=== PATIENT | male | born 1960 | race African-American/Black ===

== ENCOUNTER 2019-10-10 07:26 | Inpatient (IN) | payer BC, MEDICARE, OTHER ==
[~2019-10-10] VITALS: Ht 175.3 cm; Wt 67.1 kg
[2019-10-10] MEDS ORDERED: MORPHINE SULFATE 4 MG/ML CPJ (NOT FOR IM USE) IV STA (08:06)
[2019-10-10] MEDS ORDERED: ONDANSETRON HCL 4MG/2ML INJ IV ONE ×2 (08:15→11:45)
[2019-10-10] MEDS ORDERED: ONDANSETRON HCL 4MG/2ML INJ ONE (08:22)
[2019-10-10 08:25] LABS: HEMATOCRIT. 38.7 % (42.0-52.0); HEMOGLOBIN. 13.4 g/dL (14.0-18.0); MEAN CORPUSCULAR HEMOGLOBIN 29.5 pg (28.0-32.0); MEAN CORPUSCULAR VOLUME 85.1 fL (80.0-94.0); MEAN PLATELET VOLUME 7.8 fl (7.4-10.4); PLATELET 245 x1000/uL (130-400); RED BLOOD CELL COUNT 4.55 mill/uL (4.7-6.1); RED CELL DISTRIBUTION WIDTH 16.1 % (11.6-14.6)
[2019-10-10 08:32] LABS: CHLORIDE 95 mEq/L (98-107)
[2019-10-10] MEDS ORDERED: MORPHINE SULFATE 4 MG/ML CPJ (NOT FOR IM USE) IV ONE ×2 (08:45→10:30)
[2019-10-10 10:41] LABS: PLATELET ESTIMATE NORMAL
[2019-10-10] MEDS ORDERED: ALBUTEROL (0.083%) 2.5MG/3ML NEB HHN STA (11:10)
[2019-10-10] MEDS ORDERED: DOCUSATE SODIUM 100MG CAPSULE PO PRN (12:00)
[2019-10-10] MEDS ORDERED: LORAZEPAM 2MG/ML CPJ IV PRN (12:00)
[2019-10-10] MEDS ORDERED: HYDROCODONE/ACETAMINOPHEN 5/325MG TABLET PO PRN (12:00)
[2019-10-10] MEDS ORDERED: GUAIFENESIN 200MG/10ML SUGAR FREE UDC PO PRN (12:00)
[2019-10-10] MEDS ORDERED: NA PHOS,M-B/NA PHOS,DI-BA ENEMA 118ML PR PRN (12:00)
[2019-10-10] MEDS ORDERED: MAGNESIUM/ALUMINUM HYDROXIDE/SIMETHICONE 30ML UDC PO PRN (12:00)
[2019-10-10] MEDS ORDERED: CLONIDINE 0.1MG TABLET PO PRN (12:00)
[2019-10-10] MEDS ORDERED: IPRATROPIUM/ALBUTEROL 0.5-3(2.5)MG/3ML NEB NEB PRN (12:00)
[2019-10-10] MEDS ORDERED: ACETAMINOPHEN 325MG TABLET PO PRN (12:00)
[2019-10-10] MEDS ORDERED: DIPHENHYDRAMINE 50MG/ML VIAL IV PRN (12:00)
[2019-10-11] VITALS (8 sets, daily range): BP systolic 106–151; BP diastolic 68–89
[2019-10-11] MEDS: ONDANSETRON HCL 4MG/2ML INJ IV PRN ×2 (00:57→18:49)
[2019-10-11] MEDS: MORPHINE SULFATE 2 MG/ML CPJ (NOT FOR IM USE) IV PRN (00:57)
[2019-10-11] MEDS ORDERED: CALC667T2 PO (02:19)
[2019-10-11] MEDS ORDERED: AMLO10TA80 PO (02:19)
[2019-10-11] MEDS ORDERED: ATOR10TA69 PO (02:19)
[2019-10-11] MEDS ORDERED: ALLO100T PO (02:19)
[2019-10-11 06:59] LABS: CHLORIDE 98 mEq/L (98-107)
[2019-10-11 07:08] LABS: T4 FREE 1.24 ng/dL (0.76-1.46)
[2019-10-11 07:11] LABS: LDL CHOLESTEROL 61 mg/dL (5-100)
[2019-10-11 07:12] LABS: HDL CHOLESTEROL 104 mg/dL (40-59)
[2019-10-11 07:41] LABS: BASOPHILS % 0.2 % (0.0-2.0); EOSINOPHILS % 0.1 % (0.0-5.0); HEMATOCRIT. 37.3 % (42.0-52.0); HEMOGLOBIN. 13.1 g/dL (14.0-18.0); LYMPHOCYTES % 12.1 % (20.0-50.0); MEAN CORPUSCULAR HEMOGLOBIN 29.9 pg (28.0-32.0); MEAN CORPUSCULAR VOLUME 85.3 fL (80.0-94.0); MEAN PLATELET VOLUME 8.2 fl (7.4-10.4); NEUTROPHILS % 79.6 % (40.0-76.0); PLATELET 245 x1000/uL (130-400); RED BLOOD CELL COUNT 4.38 mill/uL (4.7-6.1); RED CELL DISTRIBUTION WIDTH 16.6 % (11.6-14.6)
[2019-10-11] MEDS ORDERED: ENOXAPARIN 40MG/0.4ML SYR SUBCUT SCH (09:00)
[2019-10-11] MEDS ORDERED: FAMOTIDINE 20MG TABLET PO NR (10:15)
[2019-10-11] MEDS: OMEPRAZOLE 20MG CAPSULE EXTENDED RELEASE PO SCH (10:50)
[2019-10-11] MEDS: ALLOPURINOL 100 MG TABLET PO SCH (10:51)
[2019-10-11] MEDS: AMLODIPINE 5MG TABLET PO SCH (10:51)
[2019-10-11] MEDS: DOCUSATE SODIUM 100MG CAPSULE PO SCH (17:52)
[2019-10-11] MEDS: ATORVASTATIN CALCIUM 10MG TABLET PO SCH (21:11)
[2019-10-12] VITALS (7 sets, daily range): BP systolic 112–157; BP diastolic 64–98
[2019-10-12] MEDS: OMEPRAZOLE 20MG CAPSULE EXTENDED RELEASE PO SCH (06:11)
[2019-10-12 06:34] LABS: BASOPHILS % 0.3 % (0.0-2.0); EOSINOPHILS % 1.6 % (0.0-5.0); HEMATOCRIT. 38.8 % (42.0-52.0); HEMOGLOBIN. 13.4 g/dL (14.0-18.0); LYMPHOCYTES % 18.9 % (20.0-50.0); MEAN CORPUSCULAR HEMOGLOBIN 29.4 pg (28.0-32.0); MEAN CORPUSCULAR VOLUME 85.4 fL (80.0-94.0); MONOCYTES % 12.5 % (2.0-8.0); NEUTROPHILS % 66.7 % (40.0-76.0); PLATELET 237 x1000/uL (130-400); RED BLOOD CELL COUNT 4.55 mill/uL (4.7-6.1); RED CELL DISTRIBUTION WIDTH 16.4 % (11.6-14.6)
[2019-10-12 06:57] LABS: CHLORIDE 100 mEq/L (98-107)
[2019-10-12 07:09] LABS: PHOSPHORUS 4.6 mg/dL (2.5-4.9)
[2019-10-12] MEDS: FOLIC ACID/VITAMIN B COMP W-C TABLET PO SCH (09:31)
[2019-10-12] MEDS: ENOXAPARIN 30MG/0.3ML SYR SUBCUT SCH (09:31)
[2019-10-12] MEDS: AMLODIPINE 5MG TABLET PO SCH (09:32)
[2019-10-12] MEDS: DOCUSATE SODIUM 100MG CAPSULE PO SCH ×2 (09:32→16:50)
[2019-10-12] MEDS: ALLOPURINOL 100 MG TABLET PO SCH (09:32)
[2019-10-12] MEDS: CALCIUM ACETATE 667 MG TABLET PO SCH ×2 (13:30→18:20)
[2019-10-12] MEDS: MORPHINE SULFATE 2 MG/ML CPJ (NOT FOR IM USE) IV PRN (13:45)
[2019-10-12] MEDS: ATORVASTATIN CALCIUM 10MG TABLET PO SCH (20:48)
[2019-10-13] VITALS: BP 133/85
[2019-10-13 04:00] VITALS: BP 128/75
[2019-10-13 06:29] LABS: BASOPHILS % 0.9 % (0.0-2.0); EOSINOPHILS % 2.6 % (0.0-5.0); HEMATOCRIT. 39.2 % (42.0-52.0); HEMOGLOBIN. 13.5 g/dL (14.0-18.0); LYMPHOCYTES % 26.9 % (20.0-50.0); MEAN CORPUSCULAR HEMOGLOBIN 29.5 pg (28.0-32.0); MEAN CORPUSCULAR VOLUME 85.6 fL (80.0-94.0); MEAN PLATELET VOLUME 8.2 fl (7.4-10.4); MONOCYTES % 13.6 % (2.0-8.0); PLATELET 238 x1000/uL (130-400); RED BLOOD CELL COUNT 4.58 mill/uL (4.7-6.1); RED CELL DISTRIBUTION WIDTH 16.1 % (11.6-14.6)
[2019-10-13] MEDS: OMEPRAZOLE 20MG CAPSULE EXTENDED RELEASE PO SCH (06:38)
[2019-10-13 08:44] VITALS: BP 134/84
[2019-10-13] MEDS: AMLODIPINE 5MG TABLET PO SCH (09:00)
[2019-10-13] MEDS: DOCUSATE SODIUM 100MG CAPSULE PO SCH (09:16)
[2019-10-13] MEDS: FOLIC ACID/VITAMIN B COMP W-C TABLET PO SCH (09:18)
[2019-10-13] MEDS: CALCIUM ACETATE 667 MG TABLET PO SCH ×2 (09:18→13:23)
[2019-10-13] MEDS: ENOXAPARIN 30MG/0.3ML SYR SUBCUT SCH (09:25)
[2019-10-13 12:00] VITALS: BP 139/93
[2019-10-13 14:29] VITALS: BP 139/93
[2019-10-13 15:31] VITALS: BP 148/94
== END 2019-10-13 17:15 | disposition home or self-care (01) | DRG 391 ==
LOC: ER 07:26 → 6WST 11:42 → ENRESERV 23:44
PROVIDERS: ADMIT Internal Medicine; ATTEND Internal Medicine
PROC: 5A1D70Z Performance of Urinary Filtration, Intermittent, Less than 6 Hours Per Day (ICD-10-PCS; 2019-10-11)
PROC: 5A1D70Z Performance of Urinary Filtration, Intermittent, Less than 6 Hours Per Day (ICD-10-PCS; principal; 2019-10-13)
DX: R10.9 Unspecified abdominal pain (principal); N18.6 End stage renal disease; E46 Unspecified protein-calorie malnutrition; I12.0 Hypertensive chronic kidney disease with stage 5 chronic kidney disease or end stage renal disease; N25.81 Secondary hyperparathyroidism of renal origin; Q61.3 Polycystic kidney, unspecified; Q44.6 Cystic disease of liver; E87.1 Hypo-osmolality and hyponatremia; E86.0 Dehydration; E87.6 Hypokalemia; E78.5 Hyperlipidemia, unspecified; N40.0 Benign prostatic hyperplasia without lower urinary tract symptoms; E21.3 Hyperparathyroidism, unspecified; K21.9 Gastro-esophageal reflux disease without esophagitis; M10.9 Gout, unspecified; Z99.2 Dependence on renal dialysis; Z79.899 Other long term (current) drug therapy; Z68.21 Body mass index [BMI] 21.0-21.9, adult
CPT/HCPCS: 36415; 71045; 74176; 80048; 80053; 80061; 83880; 84100; 84439; 84443; 84484; 84550; 85025; 86850; 86900; 93005; 94640; 99285; J1650; J2060; J2270; J2405

== ENCOUNTER 2020-01-15 07:52 | Inpatient (IN) | payer BC, MEDICARE, OTHER ==
[~2020-01-15] VITALS: Ht 175.3 cm; Wt 72.6 kg
[~2020-01-15 07:52] MED LIST: ALLO100T PO; AMLO10TA80 PO; ATOR10TA69 PO; CALC667T2 PO
[2020-01-15] MEDS ORDERED: MORPHINE SULFATE 4 MG/ML CPJ (NOT FOR IM USE) IV STA (08:04)
[2020-01-15] MEDS ORDERED: ONDANSETRON HCL 4MG/2ML INJ IV STA (08:04)
[2020-01-15 08:24] LABS: BASOPHILS % 0.3 % (0.0-2.0); EOSINOPHILS % 0.4 % (0.0-5.0); HEMATOCRIT. 38.6 % (42.0-52.0); HEMOGLOBIN. 13.3 g/dL (14.0-18.0); LYMPHOCYTES % 9.9 % (20.0-50.0); MEAN CORPUSCULAR HEMOGLOBIN 29.3 pg (28.0-32.0); MEAN CORPUSCULAR VOLUME 85.3 fL (80.0-94.0); MEAN PLATELET VOLUME 7.9 fl (7.4-10.4); MONOCYTES % 7.5 % (2.0-8.0); NEUTROPHILS % 81.9 % (40.0-76.0); PLATELET 209 x1000/uL (130-400); RED BLOOD CELL COUNT 4.52 mill/uL (4.7-6.1); RED CELL DISTRIBUTION WIDTH 15.8 % (11.6-14.6)
[2020-01-15 08:29] LABS: CHLORIDE 99 mEq/L (98-107)
[2020-01-15 08:30] LABS: INR 1.2
[2020-01-15] MEDS ORDERED: MORPHINE SULFATE 4 MG/ML CPJ (NOT FOR IM USE) IV ONE (09:15)
[2020-01-15] MEDS ORDERED: LORAZEPAM 1MG TABLET PO ONE (10:00)
[2020-01-15 12:15] VITALS: BP 132/83
[2020-01-15 12:20] VITALS: BP 132/83
[2020-01-15] MEDS ORDERED: MAGNESIUM/ALUMINUM HYDROXIDE/SIMETHICONE 30ML UDC PO PRN (14:30)
[2020-01-15] MEDS ORDERED: ACETAMINOPHEN 325MG TABLET PO PRN (14:30)
[2020-01-15] MEDS ORDERED: ENOXAPARIN 40MG/0.4ML SYR SUBCUT SCH (14:30)
[2020-01-15] MEDS ORDERED: HYDROMORPHONE HCL/PF 2MG/ML CPJ IV PRN (14:30)
[2020-01-15] MEDS ORDERED: CLONIDINE 0.1MG TABLET PO PRN (14:30)
[2020-01-15] MEDS ORDERED: GUAIFENESIN 200MG/10ML SUGAR FREE UDC PO PRN (14:30)
[2020-01-15] MEDS ORDERED: HYDROCODONE/ACETAMINOPHEN 5/325MG TABLET PO PRN (14:30)
[2020-01-15] MEDS ORDERED: DOCUSATE SODIUM 100MG CAPSULE PO PRN (14:30)
[2020-01-15] MEDS ORDERED: BISACODYL 5MG TABLET PO SCH (14:45)
[2020-01-15 16:00] VITALS: BP 141/88
[2020-01-15] MEDS: ENOXAPARIN 30MG/0.3ML SYR SUBCUT SCH (16:46)
[2020-01-15] MEDS: METOCLOPRAMIDE HCL 5MG TABLET PO SCH ×2 (18:23→20:43)
[2020-01-15] MEDS: DOCUSATE SODIUM 100MG CAPSULE PO SCH (18:23)
[2020-01-15] MEDS ORDERED: PNEUMOCOCCAL 23-VAL P-SAC VAC 0.5 ML IM ONE (19:45)
[2020-01-15 20:00] VITALS: BP 131/86
[2020-01-15] MEDS: ATORVASTATIN CALCIUM 10MG TABLET PO SCH (20:43)
[2020-01-15] MEDS: ONDANSETRON HCL 4MG/2ML INJ IV PRN (20:54)
[2020-01-16] VITALS: BP 122/81
[2020-01-16] MEDS: ONDANSETRON HCL 4MG/2ML INJ IV PRN (03:52)
[2020-01-16 04:00] VITALS: BP 141/83
[2020-01-16 06:49] LABS: BASOPHILS % 0.2 % (0.0-2.0); EOSINOPHILS % 0.4 % (0.0-5.0); HEMATOCRIT. 34.7 % (42.0-52.0); LYMPHOCYTES % 18.7 % (20.0-50.0); MEAN CORPUSCULAR HEMOGLOBIN 29.5 pg (28.0-32.0); MEAN CORPUSCULAR VOLUME 85.2 fL (80.0-94.0); MEAN PLATELET VOLUME 8.4 fl (7.4-10.4); MONOCYTES % 12.6 % (2.0-8.0); NEUTROPHILS % 68.1 % (40.0-76.0); PLATELET 179 x1000/uL (130-400); RED BLOOD CELL COUNT 4.07 mill/uL (4.7-6.1); RED CELL DISTRIBUTION WIDTH 15.9 % (11.6-14.6)
[2020-01-16] MEDS: METOCLOPRAMIDE HCL 5MG TABLET PO SCH ×4 (06:54→21:03)
[2020-01-16] MEDS: OMEPRAZOLE 20MG CAPSULE EXTENDED RELEASE PO SCH (06:54)
[2020-01-16 06:55] LABS: CHLORIDE 100 mEq/L (98-107)
[2020-01-16 07:02] LABS: PHOSPHORUS 3.8 mg/dL (2.5-4.9)
[2020-01-16 08:00] VITALS: BP 145/82
[2020-01-16] MEDS ORDERED: AMLODIPINE 10MG TABLET PO SCH (09:00)
[2020-01-16] MEDS ORDERED: AMLODIPINE 5MG TABLET PO SCH (09:00)
[2020-01-16] MEDS: DOCUSATE SODIUM 100MG CAPSULE PO SCH ×2 (09:21→16:23)
[2020-01-16] MEDS: AMLODIPINE 10MG TABLET PO SCH (09:22)
[2020-01-16] MEDS ORDERED: MAGNESIUM CITRATE 300ML SOLUTION PO NR (10:00)
[2020-01-16 12:00] VITALS: BP 124/71
[2020-01-16 16:00] VITALS: BP 133/77
[2020-01-16] MEDS: ENOXAPARIN 30MG/0.3ML SYR SUBCUT SCH (16:23)
[2020-01-16 20:00] VITALS: BP 121/75
[2020-01-16] MEDS: ATORVASTATIN CALCIUM 10MG TABLET PO SCH (21:03)
[2020-01-17] VITALS: BP 132/78
[2020-01-17 03:50] VITALS: BP 140/83
[2020-01-17] MEDS: OMEPRAZOLE 20MG CAPSULE EXTENDED RELEASE PO SCH (06:29)
[2020-01-17] MEDS: METOCLOPRAMIDE HCL 5MG TABLET PO SCH ×2 (06:29→12:20)
[2020-01-17 06:50] LABS: BASOPHILS % 0.3 % (0.0-2.0); EOSINOPHILS % 1.9 % (0.0-5.0); HEMATOCRIT. 35.9 % (42.0-52.0); HEMOGLOBIN. 12.4 g/dL (14.0-18.0); LYMPHOCYTES % 20.5 % (20.0-50.0); MEAN CORPUSCULAR HEMOGLOBIN 29.5 pg (28.0-32.0); MEAN CORPUSCULAR VOLUME 85.7 fL (80.0-94.0); MEAN PLATELET VOLUME 8.6 fl (7.4-10.4); MONOCYTES % 10.4 % (2.0-8.0); NEUTROPHILS % 66.9 % (40.0-76.0); PLATELET 182 x1000/uL (130-400); RED BLOOD CELL COUNT 4.19 mill/uL (4.7-6.1); RED CELL DISTRIBUTION WIDTH 15.7 % (11.6-14.6)
[2020-01-17 07:25] LABS: CHLORIDE 99 mEq/L (98-107)
[2020-01-17 07:33] LABS: PHOSPHORUS 3.6 mg/dL (2.5-4.9)
[2020-01-17 08:00] VITALS: BP 140/81
[2020-01-17] MEDS: DOCUSATE SODIUM 100MG CAPSULE PO SCH (08:56)
[2020-01-17] MEDS: AMLODIPINE 10MG TABLET PO SCH (08:58)
[2020-01-17 12:00] VITALS: BP 133/86
[2020-01-17] MEDS: ENOXAPARIN 30MG/0.3ML SYR SUBCUT SCH (14:36)
[2020-01-17 14:40] VITALS: BP 133/86
== END 2020-01-17 15:27 | disposition home or self-care (01) | DRG 391 ==
LOC: ER 07:59 → MICUSO 10:27 → 6WST 12:02
PROVIDERS: ADMIT Hospitalist; ATTEND Hospitalist
PROC: 5A1D70Z Performance of Urinary Filtration, Intermittent, Less than 6 Hours Per Day (ICD-10-PCS; principal; 2020-01-17)
DX: R11.2 Nausea with vomiting, unspecified (principal); N18.6 End stage renal disease; Q61.3 Polycystic kidney, unspecified; I12.0 Hypertensive chronic kidney disease with stage 5 chronic kidney disease or end stage renal disease; N25.81 Secondary hyperparathyroidism of renal origin; Q44.6 Cystic disease of liver; K56.41 Fecal impaction; E87.6 Hypokalemia; E78.5 Hyperlipidemia, unspecified; M10.9 Gout, unspecified; K21.9 Gastro-esophageal reflux disease without esophagitis; Z99.2 Dependence on renal dialysis; Z82.49 Family history of ischemic heart disease and other diseases of the circulatory system; Z79.899 Other long term (current) drug therapy
CPT/HCPCS: 36415; 71045; 74176; 80053; 84100; 84550; 85025; 93970; 96374; 99285; J1170; J1650; J2270; J2405; J8597

== ENCOUNTER 2020-05-25 18:05 | Inpatient (IN) | payer BC, MEDICARE, OTHER ==
[~2020-05-25] VITALS: Ht 172.7 cm; Wt 73.9 kg
[2020-05-25 18:34] LABS: BASOPHILS % 0.5 % (0.0-2.0); EOSINOPHILS % 2.7 % (0.0-5.0); HEMATOCRIT. 33.8 % (42.0-52.0); HEMOGLOBIN. 11.5 g/dL (14.0-18.0); LYMPHOCYTES % 9.5 % (20.0-50.0); MEAN CORPUSCULAR HEMOGLOBIN 29.4 pg (28.0-32.0); MEAN CORPUSCULAR VOLUME 86.1 fL (80.0-94.0); MEAN PLATELET VOLUME 7.7 fl (7.4-10.4); NEUTROPHILS % 79.3 % (40.0-76.0); PLATELET 228 x1000/uL (130-400); RED BLOOD CELL COUNT 3.92 mill/uL (4.7-6.1); RED CELL DISTRIBUTION WIDTH 16.1 % (11.6-14.6)
[2020-05-25 18:42] LABS: INR 1.2; PROTHROMBIN TIME 12.9 sec (9.6-11.0)
[2020-05-25 18:43] LABS: CHLORIDE 101 mEq/L (98-107)
[2020-05-25] MEDS ORDERED: DEXAMETHASONE 10 MG/ML VIAL IV ONE (18:45)
[2020-05-25] MEDS ORDERED: LEVETIRACETAM 500MG PREMIX 100 ML IV ONE (18:45)
[2020-05-25] MEDS ORDERED: NICARDIPINE 50 MG in SODIUM CHLORIDE 0.9% 230 ML IV ONE (18:45)
[2020-05-25 18:46] LABS: ETHANOL BLOOD < 10 mg/dL
[2020-05-25 18:50] LABS: LDL CHOLESTEROL 58 mg/dL (5-100)
[2020-05-25] MEDS ORDERED: NICARDIPINE 40MG/200ML PREMIX 200 ML IV NR (18:56)
[2020-05-25] MEDS ORDERED: KCL 10MEQ/50ML PREMIX 50 ML IV ONE (19:15)
[2020-05-25 19:37] LABS: CLARITY URINE CLEAR (CLEAR); COLOR URINE YELLOW (YELLOW); KETONES URINE NEGATIVE (NEGATIVE); LEUKOCYTE ESTERASE URINE NEGATIVE (NEGATIVE); NITRITE URINE NEGATIVE (NEGATIVE); OCCULT BLOOD URINE TRACE (NEGATIVE); PH URINE >=9.0 (4.5-8.0); PROTEIN URINE 3+ (NEGATIVE); SPECIFIC GRAVITY URINE 1.011 (1.005-1.030); UROBILINOGEN URINE 0.2 E.U./dL (0.2-1.0)
[2020-05-25 19:46] LABS: *AMPHETAMINES SCREEN URINE NEGATIVE (NEGATIVE); *BARBITURATES SCREEN URINE NEGATIVE (NEGATIVE); *BENZODIAZEPINES SCREEN URINE NEGATIVE (NEGATIVE); *COCAINE SCREEN URINE NEGATIVE (NEGATIVE)
[2020-05-25 19:47] LABS: METHADONE URINE SCREEN NEGATIVE (NEGATIVE); OPIATES URINE SCREEN NEGATIVE (NEGATIVE); PHENCYCLIDINE URINE SCREEN NEGATIVE (NEGATIVE)
[2020-05-25 19:48] LABS: CANNABINOID URINE SCREEN PRESUMTIVE POSITIVE (NEGATIVE)
[2020-05-25] MEDS: DEXT 5%/0.9% NACL 1,000 ML IV SCH (21:52)
[2020-05-25 22:39] VITALS: BP 147/83
[2020-05-25 22:45] VITALS: BP 155/101
[2020-05-25 23:00] VITALS: BP_SYST 141; BP_SYST 147; BP_DIAS 83; BP_DIAS 87
[2020-05-25 23:15] VITALS: BP 139/76
[2020-05-25 23:30] VITALS: BP 139/90
[2020-05-25 23:45] VITALS: BP 137/105
[2020-05-26] VITALS (94 sets, daily range): BP systolic 108–154; BP diastolic 39–97
[2020-05-26] MEDS ORDERED: NICARDIPINE 100 MG in SODIUM CHLORIDE 0.9% 60 ML IV PRN ×2
[2020-05-26] MEDS: DEXAMETHASONE 4MG/ML 1ML VIAL IV SCH ×4 (00:56→17:43)
[2020-05-26] MEDS: NICARDIPINE 100 MG in SODIUM CHLORIDE 0.9% 60 ML IV PRN ×3 (00:57→19:56)
[2020-05-26] MEDS: MORPHINE SULFATE 2 MG/ML CPJ (NOT FOR IM USE) IV PRN ×4 (02:44→22:15)
[2020-05-26] MEDS ORDERED: MORPHINE SULFATE 2 MG/ML CPJ (NOT FOR IM USE) IV SCH (07:00)
[2020-05-26 08:35] LABS: HEMATOCRIT. 33.8 % (42.0-52.0); HEMOGLOBIN. 11.5 g/dL (14.0-18.0); MEAN CORPUSCULAR HEMOGLOBIN 29.5 pg (28.0-32.0); MEAN CORPUSCULAR VOLUME 87.2 fL (80.0-94.0); MEAN PLATELET VOLUME 7.9 fl (7.4-10.4); PLATELET 269 x1000/uL (130-400); RED BLOOD CELL COUNT 3.88 mill/uL (4.7-6.1); RED CELL DISTRIBUTION WIDTH 16.1 % (11.6-14.6)
[2020-05-26] MEDS ORDERED: LEVETIRACETAM 500MG PREMIX 100 ML IV SCH (09:00)
[2020-05-26] MEDS: FAMOTIDINE 20MG/2ML VIAL IV SCH (09:45)
[2020-05-26 09:59] LABS: PLATELET ESTIMATE NORMAL
[2020-05-26] MEDS ORDERED: KCL 20MEQ/100ML PREMIX 100 ML IV SCH (11:00)
[2020-05-26] MEDS: LEVETIRACETAM 500MG PREMIX 100 ML IV SCH ×2 (11:36→21:02)
[2020-05-26] MEDS: DEXT 5%/0.9% NACL 1,000 ML IV SCH ×2 (11:38→17:43)
[2020-05-26] MEDS ORDERED: LORAZEPAM 2MG/ML CPJ IV SCH (12:45)
[2020-05-27] VITALS (95 sets, daily range): BP systolic 105–147; BP diastolic 57–99
[2020-05-27] MEDS: DEXAMETHASONE 4MG/ML 1ML VIAL IV SCH ×4 (00:27→17:24)
[2020-05-27 05:54] LABS: HEMATOCRIT. 31.5 % (42.0-52.0); HEMOGLOBIN. 10.8 g/dL (14.0-18.0); MEAN CORPUSCULAR HEMOGLOBIN 29.3 pg (28.0-32.0); MEAN CORPUSCULAR VOLUME 85.6 fL (80.0-94.0); MEAN PLATELET VOLUME 8.1 fl (7.4-10.4); PLATELET 243 x1000/uL (130-400); RED BLOOD CELL COUNT 3.68 mill/uL (4.7-6.1); RED CELL DISTRIBUTION WIDTH 16.1 % (11.6-14.6)
[2020-05-27 05:59] LABS: PHOSPHORUS 5.1 mg/dL (2.5-4.9)
[2020-05-27] MEDS: NICARDIPINE 100 MG in SODIUM CHLORIDE 0.9% 60 ML IV PRN (06:43)
[2020-05-27] MEDS: FAMOTIDINE 20MG/2ML VIAL IV SCH (08:38)
[2020-05-27] MEDS: LEVETIRACETAM 500MG PREMIX 100 ML IV SCH ×2 (08:38→20:05)
[2020-05-27 08:59] LABS: PLATELET ESTIMATE NORMAL
[2020-05-27] MEDS ORDERED: LORAZEPAM 2MG/ML CPJ IV NR (17:00)
[2020-05-27] MEDS: DEXT 5%/0.9% NACL 1,000 ML IV SCH ×2 (17:24→17:25)
[2020-05-28] VITALS (85 sets, daily range): BP systolic 104–189; BP diastolic 49–120
[2020-05-28] MEDS: DEXT 5%/0.9% NACL 1,000 ML IV SCH ×2 (00:27→20:18)
[2020-05-28] MEDS: NICARDIPINE 100 MG in SODIUM CHLORIDE 0.9% 60 ML IV PRN (06:56)
[2020-05-28] MEDS: MORPHINE SULFATE 2 MG/ML CPJ (NOT FOR IM USE) IV PRN ×5 (07:24→23:59)
[2020-05-28] MEDS ORDERED: LORAZEPAM 2MG/ML CPJ IV NR (07:30)
[2020-05-28] MEDS: LORAZEPAM 2MG/ML CPJ IV PRN ×3 (08:11→20:19)
[2020-05-28] MEDS: FAMOTIDINE 20MG/2ML VIAL IV SCH (08:51)
[2020-05-28] MEDS: LEVETIRACETAM 500MG PREMIX 100 ML IV SCH ×2 (08:51→20:02)
[2020-05-28 12:21] LABS: HEMATOCRIT. 32.3 % (42.0-52.0); HEMOGLOBIN. 10.9 g/dL (14.0-18.0); MEAN PLATELET VOLUME 8.2 fl (7.4-10.4); PLATELET 271 x1000/uL (130-400); RED BLOOD CELL COUNT 3.76 mill/uL (4.7-6.1); RED CELL DISTRIBUTION WIDTH 16.3 % (11.6-14.6)
[2020-05-28 12:24] LABS: PHOSPHORUS 5.3 mg/dL (2.5-4.9)
[2020-05-28 17:46] LABS: PLATELET ESTIMATE NORMAL
[2020-05-28] MEDS: NITROPRUSSIDE 100 MG in DEXT 5% WATER 246 ML IV PRN (20:19)
[2020-05-29] VITALS (87 sets, daily range): BP systolic 96–194; BP diastolic 56–106
[2020-05-29] MEDS: LORAZEPAM 2MG/ML CPJ IV PRN ×4 (02:51→21:55)
[2020-05-29] MEDS: MORPHINE SULFATE 2 MG/ML CPJ (NOT FOR IM USE) IV PRN ×3 (05:01→22:56)
[2020-05-29 05:55] LABS: PHOSPHORUS 5.5 mg/dL (2.5-4.9)
[2020-05-29 05:57] LABS: HEMATOCRIT. 30.4 % (42.0-52.0); HEMOGLOBIN. 10.4 g/dL (14.0-18.0); MEAN CORPUSCULAR HEMOGLOBIN 29.2 pg (28.0-32.0); MEAN CORPUSCULAR VOLUME 85.7 fL (80.0-94.0); MEAN PLATELET VOLUME 8.4 fl (7.4-10.4); PLATELET 211 x1000/uL (130-400); RED BLOOD CELL COUNT 3.55 mill/uL (4.7-6.1); RED CELL DISTRIBUTION WIDTH 16.1 % (11.6-14.6)
[2020-05-29 07:50] LABS: PLATELET ESTIMATE NORMAL
[2020-05-29] MEDS: NITROPRUSSIDE 100 MG in DEXT 5% WATER 246 ML IV PRN ×2 (08:03→20:08)
[2020-05-29] MEDS: FAMOTIDINE 20MG/2ML VIAL IV SCH (09:22)
[2020-05-29] MEDS: LEVETIRACETAM 500MG PREMIX 100 ML IV SCH ×2 (09:22→20:21)
[2020-05-29] MEDS: HALOPERIDOL LACTATE 5MG/ML VIAL IM PRN (20:21)
[2020-05-30] VITALS (74 sets, daily range): BP systolic 108–193; BP diastolic 57–111
[2020-05-30] MEDS: NITROPRUSSIDE 100 MG in DEXT 5% WATER 246 ML IV PRN ×4 (00:14→23:36)
[2020-05-30] MEDS: MORPHINE SULFATE 2 MG/ML CPJ (NOT FOR IM USE) IV PRN (01:56)
[2020-05-30 05:44] LABS: BASOPHILS % 0.1 % (0.0-2.0); HEMOGLOBIN. 10.6 g/dL (14.0-18.0); LYMPHOCYTES % 9.7 % (20.0-50.0); MEAN CORPUSCULAR HEMOGLOBIN 29.4 pg (28.0-32.0); MEAN PLATELET VOLUME 8.1 fl (7.4-10.4); MONOCYTES % 9.3 % (2.0-8.0); NEUTROPHILS % 80.9 % (40.0-76.0); PLATELET 175 x1000/uL (130-400); RED CELL DISTRIBUTION WIDTH 16.1 % (11.6-14.6)
[2020-05-30] MEDS: MORPHINE SULFATE 4 MG/ML CPJ (NOT FOR IM USE) IV PRN ×4 (06:28→23:44)
[2020-05-30] MEDS: LEVETIRACETAM 500MG PREMIX 100 ML IV SCH ×2 (09:20→20:00)
[2020-05-30] MEDS: FAMOTIDINE 20MG/2ML VIAL IV SCH (09:21)
[2020-05-30] MEDS: CLONIDINE HCL 0.2MG/24HR PATCH TD SCH (12:09)
[2020-05-30] MEDS: LORAZEPAM 2MG/ML CPJ IV PRN ×2 (13:54→19:46)
[2020-05-30 16:47] LABS: BG BASE EXCESS -2.2 mmol/L (-2.0-2.0); BG CARBOXYHEMOGLOBIN 0.3 % (0.5-1.5); BG DEOXYHEMOGLOBIN 4.3 % (0.0-5.0); BG FRACTION INSPIRED OXYGEN 21; BG HCO3 ACT 22.4 mmol/L (22.0-26.0); BG METHEMOGLOBIN 0.3 % (0.0-1.5); BG OXYGEN SATURATION 95.7 % (92.0-98.5); BG OXYHEMOGLOBIN 95.1 % (94.0-97.0); BG PCO2 37.8 mmHg (35.0-45.0); BG PH 7.391 (7.350-7.450); BG PO2 89.8 mmHg (75.0-100.0); BG SAMPLE SITE RIGHT RADIAL; BG TOTAL HEMOGLOBIN 11.1 g/dL (12.0-18.0); BG VENT MODE ROOM AIR
[2020-05-30] MEDS: DEXT 5%/0.9% NACL 1,000 ML IV SCH (17:57)
[2020-05-30] MEDS: HYDRALAZINE HCL 50MG TABLET NG SCH ×3 (18:01→23:29)
[2020-05-30] MEDS: METOPROLOL TARTRATE 25MG TABLET NG SCH (20:01)
[2020-05-31] VITALS (94 sets, daily range): BP systolic 92–180; BP diastolic 40–99
[2020-05-31] MEDS: MORPHINE SULFATE 4 MG/ML CPJ (NOT FOR IM USE) IV PRN ×2 (02:18→16:47)
[2020-05-31] MEDS: HYDRALAZINE HCL 50MG TABLET NG SCH ×4 (05:01→23:05)
[2020-05-31 05:23] LABS: HEMATOCRIT. 29.9 % (42.0-52.0); HEMOGLOBIN. 10.2 g/dL (14.0-18.0); MEAN CORPUSCULAR HEMOGLOBIN 29.3 pg (28.0-32.0); MEAN CORPUSCULAR VOLUME 85.6 fL (80.0-94.0); MEAN PLATELET VOLUME 8.3 fl (7.4-10.4); PLATELET 177 x1000/uL (130-400); RED BLOOD CELL COUNT 3.49 mill/uL (4.7-6.1); RED CELL DISTRIBUTION WIDTH 15.9 % (11.6-14.6)
[2020-05-31 05:39] LABS: PHOSPHORUS 4.3 mg/dL (2.5-4.9)
[2020-05-31] MEDS ORDERED: LIDOCAINE HCL 1% 20ML VIAL (Pyxis) INJ ONE (08:03)
[2020-05-31 08:25] LABS: PLATELET ESTIMATE NORMAL
[2020-05-31 09:54] LABS: BG CARBOXYHEMOGLOBIN 0.2 % (0.5-1.5); BG METHEMOGLOBIN 0.2 % (0.0-1.5); BG OXYHEMOGLOBIN 95.6 % (94.0-97.0); BG PCO2 30.8 mmHg (35.0-45.0); BG PH 7.471 (7.350-7.450); BG PO2 87.9 mmHg (75.0-100.0); BG SAMPLE SITE RIGHT BRACHIAL; BG TOTAL HEMOGLOBIN 10.9 g/dL (12.0-18.0); BG VENT MODE ROOM AIR
[2020-05-31] MEDS: RISPERIDONE 0.5MG TABLET PO SCH ×2 (10:08→16:46)
[2020-05-31] MEDS: FOLIC ACID 1MG TABLET PO SCH (10:08)
[2020-05-31] MEDS: THIAMINE HCL 100MG TABLET PO SCH (10:09)
[2020-05-31] MEDS: FAMOTIDINE 20MG/2ML VIAL IV SCH (10:09)
[2020-05-31] MEDS: METOPROLOL TARTRATE 25MG TABLET NG SCH ×2 (10:09→20:42)
[2020-05-31] MEDS: LEVETIRACETAM 500MG PREMIX 100 ML IV SCH ×2 (10:09→20:40)
[2020-05-31] MEDS: NITROPRUSSIDE 100 MG in DEXT 5% WATER 246 ML IV PRN (11:00)
[2020-05-31] MEDS: DEXT 5%/0.9% NACL 1,000 ML IV SCH (16:48)
[2020-05-31 21:13] LABS: BG BASE EXCESS 3.5 mmol/L (-2.0-2.0); BG CARBOXYHEMOGLOBIN 0.3 % (0.5-1.5); BG HCO3 ACT 26.5 mmol/L (22.0-26.0); BG METHEMOGLOBIN 0.4 % (0.0-1.5); BG OXYHEMOGLOBIN 94.3 % (94.0-97.0); BG PCO2 34.5 mmHg (35.0-45.0); BG PH 7.503 (7.350-7.450); BG SAMPLE SITE RIGHT RADIAL; BG TOTAL HEMOGLOBIN 11.4 g/dL (12.0-18.0); BG VENT MODE ROOM AIR
[2020-06-01] VITALS (94 sets, daily range): BP systolic 81–174; BP diastolic 35–116
[2020-06-01] MEDS: NITROPRUSSIDE 100 MG in DEXT 5% WATER 246 ML IV PRN ×3 (02:06→19:54)
[2020-06-01] MEDS: CLONIDINE 0.1MG TABLET NG PRN (03:21)
[2020-06-01] MEDS: MORPHINE SULFATE 4 MG/ML CPJ (NOT FOR IM USE) IV PRN ×2 (03:30→12:01)
[2020-06-01] MEDS: HYDRALAZINE HCL 50MG TABLET NG SCH ×3 (05:19→18:00)
[2020-06-01] MEDS ORDERED: RISPERIDONE 0.25MG TABLET PO SCH (09:00)
[2020-06-01] MEDS: LEVETIRACETAM 500MG PREMIX 100 ML IV SCH ×2 (09:32→20:40)
[2020-06-01] MEDS: FAMOTIDINE 20MG/2ML VIAL IV SCH (09:32)
[2020-06-01] MEDS: THIAMINE HCL 100MG TABLET PO SCH (09:34)
[2020-06-01] MEDS: METOPROLOL TARTRATE 25MG TABLET NG SCH ×2 (09:34→20:39)
[2020-06-01] MEDS: FOLIC ACID 1MG TABLET PO SCH (09:34)
[2020-06-01 09:42] LABS: BG BASE EXCESS 1.7 mmol/L (-2.0-2.0); BG CARBOXYHEMOGLOBIN 0.3 % (0.5-1.5); BG DEOXYHEMOGLOBIN 14.3 % (0.0-5.0); BG FRACTION INSPIRED OXYGEN 40; BG HCO3 ACT 24.8 mmol/L (22.0-26.0); BG METHEMOGLOBIN 0.3 % (0.0-1.5); BG OXYGEN SATURATION 85.6 % (92.0-98.5); BG OXYHEMOGLOBIN 85.1 % (94.0-97.0); BG PCO2 33.1 mmHg (35.0-45.0); BG PH 7.492 (7.350-7.450); BG PO2 47.9 mmHg (75.0-100.0); BG VENT MODE NASAL CANNULA
[2020-06-01 10:15] LABS: BG SAMPLE SITE RIGHT RADIAL
[2020-06-01 15:18] LABS: BG BASE EXCESS 1.7 mmol/L (-2.0-2.0); BG CARBOXYHEMOGLOBIN 0.2 % (0.5-1.5); BG DEOXYHEMOGLOBIN 2.4 % (0.0-5.0); BG FRACTION INSPIRED OXYGEN 21; BG HCO3 ACT 24.6 mmol/L (22.0-26.0); BG METHEMOGLOBIN 0.3 % (0.0-1.5); BG OXYGEN SATURATION 97.6 % (92.0-98.5); BG OXYHEMOGLOBIN 97.1 % (94.0-97.0); BG PCO2 32.7 mmHg (35.0-45.0); BG PH 7.495 (7.350-7.450); BG PO2 125.6 mmHg (75.0-100.0); BG SAMPLE SITE RIGHT BRACHIAL; BG TOTAL HEMOGLOBIN 10.2 g/dL (12.0-18.0); BG VENT MODE ROOM AIR
[2020-06-01] MEDS: LORAZEPAM 2MG/ML CPJ IV PRN (21:13)
[2020-06-02] VITALS (65 sets, daily range): BP systolic 100–176; BP diastolic 49–121
[2020-06-02] MEDS: HYDRALAZINE HCL 50MG TABLET NG SCH ×4 (00:11→17:35)
[2020-06-02] MEDS: DEXT 5%/0.9% NACL 1,000 ML IV SCH (02:14)
[2020-06-02] MEDS: NITROPRUSSIDE 100 MG in DEXT 5% WATER 246 ML IV PRN ×2 (04:40→15:34)
[2020-06-02 05:11] LABS: HEMATOCRIT. 30.2 % (42.0-52.0); HEMOGLOBIN. 10.2 g/dL (14.0-18.0); MEAN CORPUSCULAR HEMOGLOBIN 29.7 pg (28.0-32.0); MEAN PLATELET VOLUME 8.8 fl (7.4-10.4); PLATELET 150 x1000/uL (130-400); RED BLOOD CELL COUNT 3.43 mill/uL (4.7-6.1); RED CELL DISTRIBUTION WIDTH 15.8 % (11.6-14.6)
[2020-06-02 05:22] LABS: PHOSPHORUS 4.4 mg/dL (2.5-4.9)
[2020-06-02] MEDS: MORPHINE SULFATE 4 MG/ML CPJ (NOT FOR IM USE) IV PRN (06:23)
[2020-06-02 09:22] LABS: BG BASE EXCESS 0.8 mmol/L (-2.0-2.0); BG CARBOXYHEMOGLOBIN 0.2 % (0.5-1.5); BG DEOXYHEMOGLOBIN 2.7 % (0.0-5.0); BG FRACTION INSPIRED OXYGEN 21; BG METHEMOGLOBIN 0.2 % (0.0-1.5); BG OXYGEN SATURATION 97.3 % (92.0-98.5); BG OXYHEMOGLOBIN 96.9 % (94.0-97.0); BG PCO2 33.5 mmHg (35.0-45.0); BG PH 7.473 (7.350-7.450); BG PO2 113.2 mmHg (75.0-100.0); BG SAMPLE SITE RIGHT BRACHIAL; BG VENT MODE ROOM AIR
[2020-06-02 09:24] LABS: PLATELET ESTIMATE NORMAL
[2020-06-02] MEDS: FAMOTIDINE 20MG/2ML VIAL IV SCH (09:26)
[2020-06-02] MEDS: LEVETIRACETAM 500MG PREMIX 100 ML IV SCH ×2 (09:26→20:24)
[2020-06-02] MEDS: FOLIC ACID 1MG TABLET PO SCH (10:58)
[2020-06-02] MEDS: THIAMINE HCL 100MG TABLET PO SCH (10:58)
[2020-06-02] MEDS: METOPROLOL TARTRATE 25MG TABLET NG SCH ×2 (10:59→20:24)
[2020-06-02] MEDS: NICARDIPINE 100 MG in SODIUM CHLORIDE 0.9% 60 ML IV PRN (15:46)
[2020-06-02 19:10] LABS: BG BASE EXCESS -1.1 mmol/L (-2.0-2.0); BG CARBOXYHEMOGLOBIN 0.2 % (0.5-1.5); BG DEOXYHEMOGLOBIN 0.8 % (0.0-5.0); BG FRACTION INSPIRED OXYGEN 100; BG HCO3 ACT 22.9 mmol/L (22.0-26.0); BG METHEMOGLOBIN 0.6 % (0.0-1.5); BG OXYGEN SATURATION 99.2 % (92.0-98.5); BG OXYHEMOGLOBIN 98.4 % (94.0-97.0); BG PCO2 35.5 mmHg (35.0-45.0); BG PH 7.427 (7.350-7.450); BG PO2 547.2 mmHg (75.0-100.0); BG SAMPLE SITE RIGHT RADIAL; BG VENT MODE MASK - NRB
[2020-06-02] MEDS: CLONIDINE 0.1MG TABLET NG PRN (21:55)
[2020-06-03] VITALS (99 sets, daily range): BP systolic 98–180; BP diastolic 47–118
[2020-06-03] MEDS: NITROPRUSSIDE 100 MG in DEXT 5% WATER 246 ML IV PRN ×3 (00:35→23:33)
[2020-06-03] MEDS: HYDRALAZINE HCL 50MG TABLET NG SCH ×5 (00:37→23:32)
[2020-06-03 05:40] LABS: HEMATOCRIT. 26.1 % (42.0-52.0); HEMOGLOBIN. 8.9 g/dL (14.0-18.0); MEAN CORPUSCULAR HEMOGLOBIN 29.4 pg (28.0-32.0); MEAN CORPUSCULAR VOLUME 86.2 fL (80.0-94.0); MEAN PLATELET VOLUME 8.9 fl (7.4-10.4); PLATELET 158 x1000/uL (130-400); RED BLOOD CELL COUNT 3.03 mill/uL (4.7-6.1); RED CELL DISTRIBUTION WIDTH 15.4 % (11.6-14.6)
[2020-06-03 05:47] LABS: PHOSPHORUS 4.8 mg/dL (2.5-4.9)
[2020-06-03] MEDS: LEVETIRACETAM 500MG PREMIX 100 ML IV SCH ×2 (08:42→21:28)
[2020-06-03] MEDS: FAMOTIDINE 20MG/2ML VIAL IV SCH (08:48)
[2020-06-03] MEDS: DEXT 5%/0.9% NACL 1,000 ML IV SCH ×2 (08:48→21:46)
[2020-06-03] MEDS: HALOPERIDOL LACTATE 5MG/ML VIAL IM PRN (09:57)
[2020-06-03] MEDS ORDERED: IPRATROPIUM/ALBUTEROL 0.5-3(2.5)MG/3ML NEB HHN PRN (11:15)
[2020-06-03 11:34] LABS: PLATELET ESTIMATE NORMAL
[2020-06-03] MEDS: THIAMINE HCL 100MG TABLET PO SCH (11:37)
[2020-06-03] MEDS: FOLIC ACID 1MG TABLET PO SCH (11:37)
[2020-06-03] MEDS: METOPROLOL TARTRATE 25MG TABLET NG SCH ×2 (11:37→21:28)
[2020-06-03 12:13] LABS: HEMATOCRIT 27.1 % (42.0-52.0); HEMOGLOBIN 9.2 g/dL (14.0-18.0); MEAN CORPUSCULAR HEMOGLOBIN 29.6 pg (28.0-32.0); MEAN CORPUSCULAR VOLUME 87.3 fL (80.0-94.0); PLATELET 158 x1000/uL (130-400); RED CELL DISTRIBUTION WIDTH 15.7 % (11.6-14.6)
[2020-06-03] MEDS: MORPHINE SULFATE 4 MG/ML CPJ (NOT FOR IM USE) IV PRN (13:54)
[2020-06-03] MEDS: FENTANYL CITRATE/PF 1,000 MCG in SODIUM CHLORIDE 0.9% 80 ML IV PRN (18:53)
[2020-06-03] MEDS: MIDAZOLAM HCL 100 MG in DEXTROSE 5% WATER 80 ML IV PRN (18:54)
[2020-06-03 19:11] LABS: BG BASE EXCESS 1.4 mmol/L (-2.0-2.0); BG CARBOXYHEMOGLOBIN 0.1 % (0.5-1.5); BG DEOXYHEMOGLOBIN 1.1 % (0.0-5.0); BG FRACTION INSPIRED OXYGEN 100; BG HCO3 ACT 25.1 mmol/L (22.0-26.0); BG METHEMOGLOBIN 0.6 % (0.0-1.5); BG OXYGEN SATURATION 98.9 % (92.0-98.5); BG OXYHEMOGLOBIN 98.2 % (94.0-97.0); BG PCO2 36.3 mmHg (35.0-45.0); BG PH 7.458 (7.350-7.450); BG PO2 441.9 mmHg (75.0-100.0); BG SAMPLE SITE RIGHT BRACHIAL; BG TOTAL HEMOGLOBIN 10.3 g/dL (12.0-18.0); BG VENT MODE VENT - AC
[2020-06-03 20:21] LABS: HEMATOCRIT. 25.9 % (42.0-52.0); HEMOGLOBIN. 8.9 g/dL (14.0-18.0); MEAN CORPUSCULAR VOLUME 86.8 fL (80.0-94.0); PLATELET 144 x1000/uL (130-400); RED BLOOD CELL COUNT 2.98 mill/uL (4.7-6.1); RED CELL DISTRIBUTION WIDTH 15.2 % (11.6-14.6)
[2020-06-03] MEDS: IPRATROPIUM/ALBUTEROL 0.5-3(2.5)MG/3ML NEB HHN SCH (21:00)
[2020-06-03 21:01] LABS: PLATELET ESTIMATE NORMAL
[2020-06-03] MEDS: QUETIAPINE FUMARATE 50MG TABLET NG SCH (21:28)
[2020-06-03] MEDS: GUAIFENESIN 600MG ER TABLET PO SCH (21:28)
[2020-06-03] MEDS: EPOETIN ALFA-EPBX 4,000 UNIT/ML VIAL SUBCUT SCH (21:28)
[2020-06-04] VITALS (95 sets, daily range): BP systolic 107–165; BP diastolic 61–94
[2020-06-04] MEDS: IPRATROPIUM/ALBUTEROL 0.5-3(2.5)MG/3ML NEB HHN SCH ×6 (00:18→21:16)
[2020-06-04] MEDS: ACETYLCYSTEINE 100MG/ML 10% VIAL 4ML INH SCH ×3 (00:18→15:56)
[2020-06-04 05:41] LABS: HEMATOCRIT. 25.8 % (42.0-52.0); HEMOGLOBIN. 8.7 g/dL (14.0-18.0); MEAN CORPUSCULAR HEMOGLOBIN 29.7 pg (28.0-32.0); MEAN CORPUSCULAR VOLUME 87.7 fL (80.0-94.0); MEAN PLATELET VOLUME 8.7 fl (7.4-10.4); PLATELET 128 x1000/uL (130-400); RED BLOOD CELL COUNT 2.94 mill/uL (4.7-6.1); RED CELL DISTRIBUTION WIDTH 15.5 % (11.6-14.6)
[2020-06-04 05:47] LABS: CHLORIDE 111 mEq/L (98-107)
[2020-06-04] MEDS: HYDRALAZINE HCL 50MG TABLET NG SCH ×2 (05:47→11:42)
[2020-06-04 05:56] LABS: PHOSPHORUS 2.8 mg/dL (2.5-4.9)
[2020-06-04 07:56] LABS: PLATELET ESTIMATE SLIGHTLY DECREASED
[2020-06-04 08:33] LABS: BG BASE EXCESS 1.1 mmol/L (-2.0-2.0); BG CARBOXYHEMOGLOBIN 0.2 % (0.5-1.5); BG DEOXYHEMOGLOBIN 0.8 % (0.0-5.0); BG HCO3 ACT 24.5 mmol/L (22.0-26.0); BG METHEMOGLOBIN 0.6 % (0.0-1.5); BG OXYGEN SATURATION 99.2 % (92.0-98.5); BG OXYHEMOGLOBIN 98.4 % (94.0-97.0); BG PCO2 34.5 mmHg (35.0-45.0); BG SAMPLE SITE RIGHT BRACHIAL; BG TOTAL HEMOGLOBIN 9.8 g/dL (12.0-18.0); BG VENT MODE VENT - AC
[2020-06-04] MEDS: LEVETIRACETAM 500MG PREMIX 100 ML IV SCH ×2 (08:35→20:12)
[2020-06-04] MEDS: GUAIFENESIN 600MG ER TABLET PO SCH ×2 (08:36→20:12)
[2020-06-04] MEDS: METOPROLOL TARTRATE 25MG TABLET NG SCH ×2 (08:36→20:12)
[2020-06-04] MEDS: FOLIC ACID 1MG TABLET PO SCH (08:36)
[2020-06-04] MEDS: FAMOTIDINE 20MG/2ML VIAL IV SCH (08:36)
[2020-06-04] MEDS: QUETIAPINE FUMARATE 50MG TABLET NG SCH ×2 (08:36→20:12)
[2020-06-04] MEDS: THIAMINE HCL 100MG TABLET PO SCH (08:37)
[2020-06-04] MEDS: CLONIDINE 0.1MG TABLET NG PRN (12:16)
[2020-06-04] MEDS ORDERED: AMLODIPINE 10MG TABLET PO SCH (15:15)
[2020-06-04] MEDS: AMLODIPINE 10MG TABLET PO SCH (16:02)
[2020-06-04] MEDS: DEXT 5%/0.9% NACL 1,000 ML IV SCH (17:35)
[2020-06-04] MEDS: HYDRALAZINE HCL 50MG TABLET PO SCH ×2 (17:35→23:45)
[2020-06-04 20:40] LABS: CHLORIDE 110 mEq/L (98-107); HEMATOCRIT. 28.4 % (42.0-52.0); HEMOGLOBIN. 9.6 g/dL (14.0-18.0); MEAN CORPUSCULAR HEMOGLOBIN 29.8 pg (28.0-32.0); MEAN CORPUSCULAR VOLUME 87.8 fL (80.0-94.0); MEAN PLATELET VOLUME 8.7 fl (7.4-10.4); PLATELET 132 x1000/uL (130-400); RED BLOOD CELL COUNT 3.23 mill/uL (4.7-6.1); RED CELL DISTRIBUTION WIDTH 15.5 % (11.6-14.6)
[2020-06-04 20:46] LABS: PHOSPHORUS 2.7 mg/dL (2.5-4.9)
[2020-06-04 21:12] LABS: PLATELET ESTIMATE NORMAL
[2020-06-05] VITALS (72 sets, daily range): BP systolic 120–161; BP diastolic 69–97
[2020-06-05] MEDS: ACETYLCYSTEINE 100MG/ML 10% VIAL 4ML INH SCH ×3 (01:14→16:01)
[2020-06-05] MEDS: IPRATROPIUM/ALBUTEROL 0.5-3(2.5)MG/3ML NEB HHN SCH ×6 (01:14→20:49)
[2020-06-05] MEDS: HYDRALAZINE HCL 50MG TABLET PO SCH ×3 (05:34→17:29)
[2020-06-05] MEDS: FENTANYL CITRATE/PF 1,000 MCG in SODIUM CHLORIDE 0.9% 80 ML IV PRN (05:43)
[2020-06-05] MEDS: MIDAZOLAM HCL 100 MG in DEXTROSE 5% WATER 80 ML IV PRN (05:43)
[2020-06-05 05:45] LABS: BASOPHILS % 0.1 % (0.0-2.0); EOSINOPHILS % 1.4 % (0.0-5.0); HEMATOCRIT. 27.4 % (42.0-52.0); HEMOGLOBIN. 9.1 g/dL (14.0-18.0); LYMPHOCYTES % 7.6 % (20.0-50.0); MEAN CORPUSCULAR HEMOGLOBIN 29.5 pg (28.0-32.0); MEAN CORPUSCULAR VOLUME 88.7 fL (80.0-94.0); MEAN PLATELET VOLUME 8.7 fl (7.4-10.4); MONOCYTES % 9.1 % (2.0-8.0); NEUTROPHILS % 81.8 % (40.0-76.0); PLATELET 127 x1000/uL (130-400); RED BLOOD CELL COUNT 3.09 mill/uL (4.7-6.1)
[2020-06-05] MEDS: FOLIC ACID 1MG TABLET PO SCH (08:52)
[2020-06-05] MEDS: METOPROLOL TARTRATE 25MG TABLET NG SCH (08:52)
[2020-06-05] MEDS: THIAMINE HCL 100MG TABLET PO SCH (08:53)
[2020-06-05] MEDS: AMLODIPINE 10MG TABLET PO SCH (08:53)
[2020-06-05 09:20] LABS: BG BASE EXCESS -0.8 mmol/L (-2.0-2.0); BG CARBOXYHEMOGLOBIN 0.3 % (0.5-1.5); BG DEOXYHEMOGLOBIN 1.2 % (0.0-5.0); BG FRACTION INSPIRED OXYGEN 40; BG HCO3 ACT 22.6 mmol/L (22.0-26.0); BG METHEMOGLOBIN 0.4 % (0.0-1.5); BG OXYGEN SATURATION 98.8 % (92.0-98.5); BG OXYHEMOGLOBIN 98.1 % (94.0-97.0); BG PCO2 32.9 mmHg (35.0-45.0); BG PH 7.455 (7.350-7.450); BG PO2 156.2 mmHg (75.0-100.0); BG SAMPLE SITE RIGHT BRACHIAL; BG TOTAL HEMOGLOBIN 10.5 g/dL (12.0-18.0); BG TOTAL RESPIRATORY RATE 16 b/min; BG VENT MODE VENT - AC
[2020-06-05] MEDS: QUETIAPINE FUMARATE 50MG TABLET NG SCH (09:30)
[2020-06-05] MEDS: FAMOTIDINE 20MG/2ML VIAL IV SCH (09:30)
[2020-06-05] MEDS: LEVETIRACETAM 500MG PREMIX 100 ML IV SCH (09:30)
[2020-06-05] MEDS: GUAIFENESIN 600MG ER TABLET PO SCH (09:30)
[2020-06-05] MEDS: DEXT 5%/0.9% NACL 1,000 ML IV SCH (17:25)
[2020-06-06] VITALS (90 sets, daily range): BP systolic 118–158; BP diastolic 70–110
[2020-06-06] MEDS: METOPROLOL TARTRATE 25MG TABLET NG SCH ×3 (00:03→20:16)
[2020-06-06] MEDS: HYDRALAZINE HCL 50MG TABLET PO SCH ×5 (00:04→23:38)
[2020-06-06] MEDS: QUETIAPINE FUMARATE 50MG TABLET NG SCH ×3 (00:04→20:14)
[2020-06-06] MEDS: GUAIFENESIN 600MG ER TABLET PO SCH ×3 (00:04→20:14)
[2020-06-06] MEDS: EPOETIN ALFA-EPBX 4,000 UNIT/ML VIAL SUBCUT SCH (00:05)
[2020-06-06] MEDS: IPRATROPIUM/ALBUTEROL 0.5-3(2.5)MG/3ML NEB HHN SCH ×6 (00:25→20:19)
[2020-06-06] MEDS: ACETYLCYSTEINE 100MG/ML 10% VIAL 4ML INH SCH ×2 (00:25→16:36)
[2020-06-06] MEDS: LEVETIRACETAM 500MG PREMIX 100 ML IV SCH ×3 (04:47→20:16)
[2020-06-06 05:37] LABS: HEMOGLOBIN. 10.3 g/dL (14.0-18.0); MEAN CORPUSCULAR HEMOGLOBIN 29.6 pg (28.0-32.0); MEAN PLATELET VOLUME 9.1 fl (7.4-10.4); PLATELET 156 x1000/uL (130-400); RED BLOOD CELL COUNT 3.48 mill/uL (4.7-6.1); RED CELL DISTRIBUTION WIDTH 15.4 % (11.6-14.6)
[2020-06-06 05:38] LABS: CHLORIDE 113 mEq/L (98-107)
[2020-06-06 05:49] LABS: PHOSPHORUS 2.4 mg/dL (2.5-4.9)
[2020-06-06] MEDS: DEXT 5%/0.9% NACL 1,000 ML IV SCH ×2 (07:15→18:27)
[2020-06-06 07:48] LABS: PLATELET ESTIMATE NORMAL
[2020-06-06 08:14] LABS: BG BASE EXCESS -1.6 mmol/L (-2.0-2.0); BG CARBOXYHEMOGLOBIN 0.3 % (0.5-1.5); BG DEOXYHEMOGLOBIN 1.4 % (0.0-5.0); BG FRACTION INSPIRED OXYGEN 40; BG HCO3 ACT 20.5 mmol/L (22.0-26.0); BG METHEMOGLOBIN 0.4 % (0.0-1.5); BG OXYGEN SATURATION 98.6 % (92.0-98.5); BG OXYHEMOGLOBIN 97.9 % (94.0-97.0); BG PCO2 26.4 mmHg (35.0-45.0); BG PH 7.507 (7.350-7.450); BG SAMPLE SITE RIGHT BRACHIAL; BG TOTAL HEMOGLOBIN 10.9 g/dL (12.0-18.0); BG VENT MODE VENT - AC
[2020-06-06] MEDS: FAMOTIDINE 20MG/2ML VIAL IV SCH (09:41)
[2020-06-06] MEDS: THIAMINE HCL 100MG TABLET PO SCH (09:42)
[2020-06-06] MEDS: FOLIC ACID 1MG TABLET PO SCH (09:42)
[2020-06-06] MEDS: AMLODIPINE 10MG TABLET PO SCH (09:42)
[2020-06-06] MEDS: CLONIDINE HCL 0.2MG/24HR PATCH TD SCH (09:44)
[2020-06-06] MEDS: FENTANYL CITRATE/PF 1,000 MCG in SODIUM CHLORIDE 0.9% 80 ML IV PRN (19:49)
[2020-06-06] MEDS ORDERED: BISACODYL 10MG SUPP PR PRN (21:00)
[2020-06-07] VITALS (94 sets, daily range): BP systolic 107–161; BP diastolic 60–111
[2020-06-07] MEDS: IPRATROPIUM/ALBUTEROL 0.5-3(2.5)MG/3ML NEB HHN SCH ×6 (00:14→20:34)
[2020-06-07] MEDS: ACETYLCYSTEINE 100MG/ML 10% VIAL 4ML INH SCH ×3 (00:14→15:45)
[2020-06-07] MEDS: HYDRALAZINE HCL 50MG TABLET PO SCH ×4 (05:19→23:16)
[2020-06-07] MEDS: MIDAZOLAM HCL 100 MG in DEXTROSE 5% WATER 80 ML IV PRN (05:30)
[2020-06-07 05:41] LABS: BASOPHILS % 0.2 % (0.0-2.0); EOSINOPHILS % 1.3 % (0.0-5.0); HEMATOCRIT. 28.2 % (42.0-52.0); HEMOGLOBIN. 9.5 g/dL (14.0-18.0); LYMPHOCYTES % 9.4 % (20.0-50.0); MEAN CORPUSCULAR HEMOGLOBIN 30.2 pg (28.0-32.0); MEAN CORPUSCULAR VOLUME 89.6 fL (80.0-94.0); MONOCYTES % 11.9 % (2.0-8.0); NEUTROPHILS % 77.2 % (40.0-76.0); PLATELET 150 x1000/uL (130-400); RED BLOOD CELL COUNT 3.15 mill/uL (4.7-6.1); RED CELL DISTRIBUTION WIDTH 15.4 % (11.6-14.6)
[2020-06-07 06:05] LABS: PHOSPHORUS 2.3 mg/dL (2.5-4.9)
[2020-06-07] MEDS: LEVETIRACETAM 500MG PREMIX 100 ML IV SCH ×2 (08:11→20:20)
[2020-06-07] MEDS: AMLODIPINE 10MG TABLET PO SCH (08:12)
[2020-06-07] MEDS: GUAIFENESIN 600MG ER TABLET PO SCH ×2 (08:12→20:22)
[2020-06-07] MEDS: QUETIAPINE FUMARATE 50MG TABLET NG SCH ×2 (08:12→20:22)
[2020-06-07] MEDS: THIAMINE HCL 100MG TABLET PO SCH (08:12)
[2020-06-07] MEDS: FOLIC ACID 1MG TABLET PO SCH (08:12)
[2020-06-07] MEDS: FAMOTIDINE 20MG/2ML VIAL IV SCH (08:12)
[2020-06-07] MEDS: METOPROLOL TARTRATE 25MG TABLET NG SCH ×2 (08:12→20:21)
[2020-06-07 09:25] LABS: BG BASE EXCESS -3.6 mmol/L (-2.0-2.0); BG CARBOXYHEMOGLOBIN 0.3 % (0.5-1.5); BG DEOXYHEMOGLOBIN 1.2 % (0.0-5.0); BG FRACTION INSPIRED OXYGEN 40; BG METHEMOGLOBIN 0.4 % (0.0-1.5); BG OXYGEN SATURATION 98.8 % (92.0-98.5); BG OXYHEMOGLOBIN 98.1 % (94.0-97.0); BG PH 7.465 (7.350-7.450); BG PO2 164.6 mmHg (75.0-100.0); BG SAMPLE SITE RIGHT BRACHIAL; BG TOTAL HEMOGLOBIN 10.9 g/dL (12.0-18.0); BG VENT MODE VENT - AC
[2020-06-07 15:43] LABS: BG BASE EXCESS -0.4 mmol/L (-2.0-2.0); BG CARBOXYHEMOGLOBIN 0.3 % (0.5-1.5); BG DEOXYHEMOGLOBIN 1.5 % (0.0-5.0); BG FRACTION INSPIRED OXYGEN 40; BG HCO3 ACT 22.4 mmol/L (22.0-26.0); BG METHEMOGLOBIN 0.3 % (0.0-1.5); BG OXYGEN SATURATION 98.5 % (92.0-98.5); BG OXYHEMOGLOBIN 97.9 % (94.0-97.0); BG PCO2 30.3 mmHg (35.0-45.0); BG PH 7.486 (7.350-7.450); BG PO2 139.8 mmHg (75.0-100.0); BG SAMPLE SITE RIGHT RADIAL; BG TOTAL HEMOGLOBIN 10.5 g/dL (12.0-18.0); BG VENT MODE VENT - AC
[2020-06-07] MEDS: EPOETIN ALFA-EPBX 4,000 UNIT/ML VIAL SUBCUT SCH (20:21)
[2020-06-08] VITALS (96 sets, daily range): BP systolic 105–154; BP diastolic 69–122
[2020-06-08] MEDS: IPRATROPIUM/ALBUTEROL 0.5-3(2.5)MG/3ML NEB HHN SCH ×6 (00:28→20:43)
[2020-06-08] MEDS: ACETYLCYSTEINE 100MG/ML 10% VIAL 4ML INH SCH ×2 (00:29→07:55)
[2020-06-08] MEDS: FENTANYL CITRATE/PF 1,000 MCG in SODIUM CHLORIDE 0.9% 80 ML IV PRN ×2 (04:33→21:57)
[2020-06-08] MEDS: HYDRALAZINE HCL 50MG TABLET PO SCH ×3 (05:18→17:57)
[2020-06-08 06:02] LABS: BASOPHILS % 0.3 % (0.0-2.0); HEMATOCRIT. 27.9 % (42.0-52.0); HEMOGLOBIN. 9.3 g/dL (14.0-18.0); LYMPHOCYTES % 8.7 % (20.0-50.0); MEAN CORPUSCULAR HEMOGLOBIN 30.2 pg (28.0-32.0); MEAN CORPUSCULAR VOLUME 90.1 fL (80.0-94.0); MEAN PLATELET VOLUME 9.1 fl (7.4-10.4); MONOCYTES % 10.6 % (2.0-8.0); NEUTROPHILS % 79.4 % (40.0-76.0); PLATELET 134 x1000/uL (130-400); RED CELL DISTRIBUTION WIDTH 15.4 % (11.6-14.6)
[2020-06-08 06:09] LABS: PHOSPHORUS 2.1 mg/dL (2.5-4.9)
[2020-06-08] MEDS: LEVETIRACETAM 500MG PREMIX 100 ML IV SCH ×2 (08:18→21:02)
[2020-06-08] MEDS: AMLODIPINE 10MG TABLET PO SCH (08:18)
[2020-06-08] MEDS: GUAIFENESIN 600MG ER TABLET PO SCH ×2 (08:18→21:25)
[2020-06-08] MEDS: FAMOTIDINE 20MG/2ML VIAL IV SCH (08:18)
[2020-06-08] MEDS: FOLIC ACID 1MG TABLET PO SCH (08:18)
[2020-06-08] MEDS: QUETIAPINE FUMARATE 50MG TABLET NG SCH ×2 (08:18→21:03)
[2020-06-08] MEDS: THIAMINE HCL 100MG TABLET PO SCH (08:18)
[2020-06-08] MEDS: METOPROLOL TARTRATE 25MG TABLET NG SCH ×2 (08:19→21:03)
[2020-06-08 08:58] LABS: BG BASE EXCESS -3.2 mmol/L (-2.0-2.0); BG CARBOXYHEMOGLOBIN 0.3 % (0.5-1.5); BG DEOXYHEMOGLOBIN 1.2 % (0.0-5.0); BG HCO3 ACT 19.6 mmol/L (22.0-26.0); BG METHEMOGLOBIN 0.3 % (0.0-1.5); BG OXYGEN SATURATION 98.8 % (92.0-98.5); BG OXYHEMOGLOBIN 98.2 % (94.0-97.0); BG PCO2 27.3 mmHg (35.0-45.0); BG PH 7.474 (7.350-7.450); BG PO2 144.8 mmHg (75.0-100.0); BG SAMPLE SITE RIGHT BRACHIAL; BG TOTAL HEMOGLOBIN 9.4 g/dL (12.0-18.0); BG VENT MODE VENT - AC
[2020-06-08] MEDS ORDERED: POTASSIUM PHOS,M-BASIC-D-BASIC 15 MMOL in DEXT 5% WATER 245 ML IV SCH (12:00)
[2020-06-08] MEDS: MIDAZOLAM HCL 100 MG in DEXTROSE 5% WATER 80 ML IV PRN (15:22)
[2020-06-09] VITALS (93 sets, daily range): BP systolic 108–156; BP diastolic 71–104
[2020-06-09] MEDS: HYDRALAZINE HCL 50MG TABLET PO SCH ×4 (00:13→17:15)
[2020-06-09] MEDS: ACETYLCYSTEINE 100MG/ML 10% VIAL 4ML INH SCH (00:44)
[2020-06-09] MEDS: IPRATROPIUM/ALBUTEROL 0.5-3(2.5)MG/3ML NEB HHN SCH ×6 (00:44→20:19)
[2020-06-09 05:54] LABS: BASOPHILS % 0.3 % (0.0-2.0); EOSINOPHILS % 1.1 % (0.0-5.0); HEMATOCRIT. 26.5 % (42.0-52.0); HEMOGLOBIN. 8.8 g/dL (14.0-18.0); LYMPHOCYTES % 8.3 % (20.0-50.0); MEAN CORPUSCULAR HEMOGLOBIN 30.3 pg (28.0-32.0); MEAN CORPUSCULAR VOLUME 90.6 fL (80.0-94.0); MEAN PLATELET VOLUME 9.3 fl (7.4-10.4); MONOCYTES % 9.7 % (2.0-8.0); NEUTROPHILS % 80.6 % (40.0-76.0); PLATELET 132 x1000/uL (130-400); RED BLOOD CELL COUNT 2.92 mill/uL (4.7-6.1); RED CELL DISTRIBUTION WIDTH 15.5 % (11.6-14.6)
[2020-06-09 06:49] LABS: CHLORIDE 111 mEq/L (98-107)
[2020-06-09] MEDS: THIAMINE HCL 100MG TABLET PO SCH (08:38)
[2020-06-09] MEDS: GUAIFENESIN 600MG ER TABLET PO SCH ×2 (08:38→22:09)
[2020-06-09] MEDS: QUETIAPINE FUMARATE 50MG TABLET NG SCH ×2 (08:38→22:09)
[2020-06-09] MEDS: FOLIC ACID 1MG TABLET PO SCH (08:38)
[2020-06-09] MEDS: AMLODIPINE 10MG TABLET PO SCH (08:39)
[2020-06-09] MEDS: METOPROLOL TARTRATE 25MG TABLET NG SCH ×2 (08:39→22:09)
[2020-06-09] MEDS: FAMOTIDINE 20MG/2ML VIAL IV SCH (08:43)
[2020-06-09] MEDS: LEVETIRACETAM 500MG PREMIX 100 ML IV SCH ×2 (10:44→22:08)
[2020-06-09] MEDS: MIDAZOLAM HCL 100 MG in DEXT 5% WATER 80 ML IV PRN (17:16)
[2020-06-09] MEDS: FENTANYL CITRATE/PF 1,000 MCG in SODIUM CHLORIDE 0.9% 80 ML IV PRN (17:18)
[2020-06-09] MEDS: HALOPERIDOL LACTATE 5MG/ML VIAL IM PRN (22:57)
[2020-06-10] VITALS (75 sets, daily range): BP systolic 113–161; BP diastolic 69–100
[2020-06-10] MEDS: IPRATROPIUM/ALBUTEROL 0.5-3(2.5)MG/3ML NEB HHN SCH ×8 (00:28→20:45)
[2020-06-10 05:33] LABS: BASOPHILS % 0.4 % (0.0-2.0); EOSINOPHILS % 0.9 % (0.0-5.0); HEMATOCRIT. 26.2 % (42.0-52.0); HEMOGLOBIN. 8.9 g/dL (14.0-18.0); MEAN CORPUSCULAR HEMOGLOBIN 30.3 pg (28.0-32.0); MEAN CORPUSCULAR VOLUME 89.2 fL (80.0-94.0); MEAN PLATELET VOLUME 9.4 fl (7.4-10.4); NEUTROPHILS % 81.7 % (40.0-76.0); PLATELET 146 x1000/uL (130-400); RED BLOOD CELL COUNT 2.94 mill/uL (4.7-6.1); RED CELL DISTRIBUTION WIDTH 15.1 % (11.6-14.6)
[2020-06-10] MEDS: HYDRALAZINE HCL 50MG TABLET PO SCH ×4 (05:49→17:45)
[2020-06-10 05:50] LABS: PHOSPHORUS 3.4 mg/dL (2.5-4.9)
[2020-06-10] MEDS: FAMOTIDINE 20MG/2ML VIAL IV SCH (08:37)
[2020-06-10] MEDS: LEVETIRACETAM 500MG PREMIX 100 ML IV SCH ×2 (08:37→22:16)
[2020-06-10] MEDS: GUAIFENESIN 600MG ER TABLET PO SCH ×2 (09:00→22:17)
[2020-06-10] MEDS: METOPROLOL TARTRATE 25MG TABLET NG SCH ×2 (09:00→22:17)
[2020-06-10] MEDS: AMLODIPINE 10MG TABLET PO SCH (09:00)
[2020-06-10] MEDS: FOLIC ACID/VITAMIN B COMP W-C TABLET PO SCH (09:00)
[2020-06-10] MEDS: QUETIAPINE FUMARATE 25MG TABLET NG SCH ×2 (09:15→21:00)
[2020-06-10] MEDS: FENTANYL CITRATE/PF 1,000 MCG in SODIUM CHLORIDE 0.9% 80 ML IV PRN (16:12)
[2020-06-10 16:29] LABS: INR 1.1
[2020-06-10] MEDS ORDERED: VECURONIUM BROMIDE 10 MG/VIAL IV ONE (17:30)
[2020-06-10] MEDS ORDERED: SODIUM CHLORIDE 0.9% 10ML VIAL ONE (17:30)
[2020-06-10] MEDS ORDERED: FAMOTIDINE 20MG TABLET PO SCH (21:00)
[2020-06-10] MEDS: EPOETIN ALFA-EPBX 4,000 UNIT/ML VIAL SUBCUT SCH (22:18)
[2020-06-10] MEDS: HALOPERIDOL LACTATE 5MG/ML VIAL IM PRN (22:19)
[2020-06-11] VITALS (103 sets, daily range): BP systolic 105–180; BP diastolic 73–106
[2020-06-11] MEDS: IPRATROPIUM/ALBUTEROL 0.5-3(2.5)MG/3ML NEB HHN SCH ×5 (01:02→16:30)
[2020-06-11] MEDS: MIDAZOLAM HCL 100 MG in DEXT 5% WATER 80 ML IV PRN (03:49)
[2020-06-11] MEDS: HYDRALAZINE HCL 50MG TABLET PO SCH ×4 (06:50→17:43)
[2020-06-11 07:55] LABS: BG BASE EXCESS -4.5 mmol/L (-2.0-2.0); BG CARBOXYHEMOGLOBIN 0.2 % (0.5-1.5); BG DEOXYHEMOGLOBIN 0.8 % (0.0-5.0); BG HCO3 ACT 18.8 mmol/L (22.0-26.0); BG METHEMOGLOBIN 0.2 % (0.0-1.5); BG OXYGEN SATURATION 99.2 % (92.0-98.5); BG OXYHEMOGLOBIN 98.8 % (94.0-97.0); BG PCO2 28.3 mmHg (35.0-45.0); BG SAMPLE SITE LEFT RADIAL; BG TOTAL HEMOGLOBIN 9.6 g/dL (12.0-18.0); BG VENT MODE VENT - AC
[2020-06-11] MEDS: FOLIC ACID/VITAMIN B COMP W-C TABLET PO SCH (09:00)
[2020-06-11] MEDS: QUETIAPINE FUMARATE 25MG TABLET NG SCH (09:00)
[2020-06-11] MEDS: GUAIFENESIN 600MG ER TABLET PO SCH ×2 (09:00→20:59)
[2020-06-11] MEDS: METOPROLOL TARTRATE 25MG TABLET NG SCH ×2 (09:00→20:54)
[2020-06-11] MEDS: AMLODIPINE 10MG TABLET PO SCH (09:00)
[2020-06-11] MEDS: LEVETIRACETAM 500MG PREMIX 100 ML IV SCH ×2 (11:24→20:52)
[2020-06-11] MEDS ORDERED: QUETIAPINE FUMARATE 50MG TABLET PO SCH (11:30)
[2020-06-11] MEDS: MORPHINE SULFATE 2 MG/ML CPJ (NOT FOR IM USE) IV PRN (13:58)
[2020-06-11] MEDS: CLONIDINE 0.1MG TABLET NG PRN (14:21)
[2020-06-11] MEDS: QUETIAPINE FUMARATE 50MG TABLET PO SCH (20:55)
[2020-06-11] MEDS: LORAZEPAM 2MG/ML CPJ IV PRN (20:56)
[2020-06-11] MEDS: HALOPERIDOL LACTATE 5MG/ML VIAL IM PRN (20:56)
[2020-06-11] MEDS: PANTOPRAZOLE SODIUM 40 MG/VIAL IV SCH (21:54)
[2020-06-12] VITALS (26 sets, daily range): BP systolic 127–164; BP diastolic 80–100
[2020-06-12] MEDS: IPRATROPIUM/ALBUTEROL 0.5-3(2.5)MG/3ML NEB HHN SCH ×6 (00:18→20:20)
[2020-06-12] MEDS: HYDRALAZINE HCL 50MG TABLET PO SCH ×4 (01:17→17:04)
[2020-06-12] MEDS: METOPROLOL TARTRATE 25MG TABLET NG SCH ×2 (09:00→21:00)
[2020-06-12] MEDS: AMLODIPINE 10MG TABLET PO SCH (09:00)
[2020-06-12] MEDS: GUAIFENESIN 600MG ER TABLET PO SCH ×2 (09:00→21:00)
[2020-06-12] MEDS: QUETIAPINE FUMARATE 50MG TABLET PO SCH (09:00)
[2020-06-12] MEDS: FOLIC ACID/VITAMIN B COMP W-C TABLET PO SCH (09:00)
[2020-06-12] MEDS: LEVETIRACETAM 500MG PREMIX 100 ML IV SCH ×2 (09:16→21:14)
[2020-06-12] MEDS: PANTOPRAZOLE SODIUM 40 MG/VIAL IV SCH ×2 (09:16→21:14)
[2020-06-12] MEDS: DEXT 5%/0.45% NACL 1000ML 1,000 ML IV SCH (12:30)
[2020-06-12 15:23] LABS: HEMATOCRIT. 22.8 % (42.0-52.0); HEMOGLOBIN. 7.7 g/dL (14.0-18.0); MEAN CORPUSCULAR HEMOGLOBIN 30.5 pg (28.0-32.0); MEAN CORPUSCULAR VOLUME 90.2 fL (80.0-94.0); MEAN PLATELET VOLUME 9.9 fl (7.4-10.4); PLATELET 150 x1000/uL (130-400); RED BLOOD CELL COUNT 2.52 mill/uL (4.7-6.1); RED CELL DISTRIBUTION WIDTH 15.5 % (11.6-14.6)
[2020-06-12 15:33] LABS: CHLORIDE 108 mEq/L (98-107); INR 1.2; PROTHROMBIN TIME 12.5 sec (9.6-11.0)
[2020-06-12 15:42] LABS: PLATELET ESTIMATE NORMAL
[2020-06-12] MEDS ORDERED: CEFAZOLIN 1000MG PREMIX 50 ML IV SCH (16:00)
[2020-06-12] MEDS: QUETIAPINE FUMARATE 25MG TABLET PO SCH (21:00)
[2020-06-12] MEDS: EPOETIN ALFA-EPBX 4,000 UNIT/ML VIAL SUBCUT SCH (21:14)
[2020-06-12 22:58] LABS: HEMATOCRIT 23.5 % (42.0-52.0); HEMOGLOBIN 8.1 g/dL (14.0-18.0)
[2020-06-13] VITALS (17 sets, daily range): BP systolic 130–167; BP diastolic 82–106
[2020-06-13] MEDS: IPRATROPIUM/ALBUTEROL 0.5-3(2.5)MG/3ML NEB HHN SCH ×6 (00:32→20:26)
[2020-06-13 04:14] LABS: HEMATOCRIT. 23.3 % (42.0-52.0); HEMOGLOBIN. 7.9 g/dL (14.0-18.0); MEAN CORPUSCULAR HEMOGLOBIN 30.7 pg (28.0-32.0); MEAN CORPUSCULAR VOLUME 90.3 fL (80.0-94.0); MEAN PLATELET VOLUME 9.6 fl (7.4-10.4); PLATELET 168 x1000/uL (130-400); RED BLOOD CELL COUNT 2.58 mill/uL (4.7-6.1); RED CELL DISTRIBUTION WIDTH 15.4 % (11.6-14.6)
[2020-06-13 04:26] LABS: INR 1.2; PARTIAL THROMBOPLASTIN TIME 33.9 sec (23.4-31.0); PROTHROMBIN TIME 12.9 sec (9.6-11.0)
[2020-06-13 04:31] LABS: PHOSPHORUS 5.2 mg/dL (2.5-4.9)
[2020-06-13] MEDS ORDERED: PHYTONADIONE 10MG/ML AMP SUBCUT SCH (05:00)
[2020-06-13] MEDS: HYDRALAZINE HCL 50MG TABLET PO SCH ×4 (06:00→18:08)
[2020-06-13 07:39] LABS: PLATELET ESTIMATE NORMAL
[2020-06-13] MEDS: QUETIAPINE FUMARATE 25MG TABLET PO SCH ×2 (08:39→20:22)
[2020-06-13] MEDS: AMLODIPINE 10MG TABLET PO SCH (08:39)
[2020-06-13] MEDS: METOPROLOL TARTRATE 25MG TABLET NG SCH (08:39)
[2020-06-13] MEDS: FOLIC ACID/VITAMIN B COMP W-C TABLET PO SCH (08:39)
[2020-06-13] MEDS: GUAIFENESIN 600MG ER TABLET PO SCH ×2 (08:39→20:09)
[2020-06-13 08:43] LABS: HEMATOCRIT 31.3 % (42.0-52.0); HEMOGLOBIN 10.5 g/dL (14.0-18.0)
[2020-06-13] MEDS ORDERED: CEFAZOLIN 1000MG PREMIX 50 ML IV SCH (09:30)
[2020-06-13] MEDS: DEXT 5%/0.45% NACL 1000ML 1,000 ML IV SCH (09:53)
[2020-06-13] MEDS: LEVETIRACETAM 500MG PREMIX 100 ML IV SCH ×2 (09:53→20:08)
[2020-06-13] MEDS: CLONIDINE HCL 0.2MG/24HR PATCH TD SCH (09:54)
[2020-06-13] MEDS: PANTOPRAZOLE SODIUM 40 MG/VIAL IV SCH ×2 (09:54→20:08)
[2020-06-13] MEDS: MORPHINE SULFATE 2 MG/ML CPJ (NOT FOR IM USE) IV PRN (10:45)
[2020-06-13] MEDS ORDERED: FENTANYL CITRATE/PF 50MCG/ML 2ML VIAL ONE (10:58)
[2020-06-13] MEDS ORDERED: MIDAZOLAM HCL 5 MG/5 ML VIAL ONE (10:58)
[2020-06-13] MEDS ORDERED: FENTANYL CITRATE/PF 50MCG/ML 2ML VIAL IV PRN (11:46)
[2020-06-13] MEDS ORDERED: MIDAZOLAM HCL 5 MG/5 ML VIAL IV PRN (11:47)
[2020-06-13] MEDS: LORAZEPAM 2MG/ML CPJ IV PRN (18:08)
[2020-06-13] MEDS: METOPROLOL TARTRATE 100MG TABLET NG SCH (20:09)
[2020-06-14] VITALS (12 sets, daily range): BP systolic 122–162; BP diastolic 76–98
[2020-06-14] MEDS: IPRATROPIUM/ALBUTEROL 0.5-3(2.5)MG/3ML NEB HHN SCH ×5 (00:20→20:50)
[2020-06-14] MEDS: HYDRALAZINE HCL 50MG TABLET PO SCH ×4 (00:28→18:08)
[2020-06-14 06:37] LABS: HEMATOCRIT. 29.2 % (42.0-52.0); HEMOGLOBIN. 9.6 g/dL (14.0-18.0); MEAN CORPUSCULAR HEMOGLOBIN 29.4 pg (28.0-32.0); MEAN CORPUSCULAR VOLUME 89.2 fL (80.0-94.0); MEAN PLATELET VOLUME 9.5 fl (7.4-10.4); PLATELET 223 x1000/uL (130-400); RED BLOOD CELL COUNT 3.27 mill/uL (4.7-6.1); RED CELL DISTRIBUTION WIDTH 14.8 % (11.6-14.6)
[2020-06-14 07:28] LABS: PHOSPHORUS 4.7 mg/dL (2.5-4.9)
[2020-06-14 08:48] LABS: PLATELET ESTIMATE NORMAL
[2020-06-14] MEDS: PANTOPRAZOLE SODIUM 40 MG/VIAL IV SCH ×2 (10:38→22:53)
[2020-06-14] MEDS: LEVETIRACETAM 500MG PREMIX 100 ML IV SCH ×2 (10:38→22:55)
[2020-06-14] MEDS: METOPROLOL TARTRATE 100MG TABLET NG SCH ×2 (10:39→22:54)
[2020-06-14] MEDS: QUETIAPINE FUMARATE 25MG TABLET PO SCH ×2 (10:39→22:54)
[2020-06-14] MEDS: FOLIC ACID/VITAMIN B COMP W-C TABLET PO SCH (10:39)
[2020-06-14] MEDS: AMLODIPINE 10MG TABLET PO SCH (10:40)
[2020-06-14] MEDS: GUAIFENESIN 600MG ER TABLET PO SCH ×2 (10:40→22:53)
[2020-06-14] MEDS: DEXT 5%/0.45% NACL 1000ML 1,000 ML IV SCH (10:41)
[2020-06-14] MEDS: EPOETIN ALFA-EPBX 4,000 UNIT/ML VIAL SUBCUT SCH (22:53)
[2020-06-15] VITALS (11 sets, daily range): BP systolic 118–145; BP diastolic 83–99
[2020-06-15] MEDS: IPRATROPIUM/ALBUTEROL 0.5-3(2.5)MG/3ML NEB HHN SCH ×5 (00:21→20:07)
[2020-06-15] MEDS: HYDRALAZINE HCL 50MG TABLET PO SCH ×4 (00:38→18:00)
[2020-06-15 06:18] LABS: HEMATOCRIT. 30.2 % (42.0-52.0); MEAN CORPUSCULAR HEMOGLOBIN 29.8 pg (28.0-32.0); MEAN CORPUSCULAR VOLUME 89.7 fL (80.0-94.0); MEAN PLATELET VOLUME 9.6 fl (7.4-10.4); PLATELET 228 x1000/uL (130-400); RED BLOOD CELL COUNT 3.36 mill/uL (4.7-6.1); RED CELL DISTRIBUTION WIDTH 15.2 % (11.6-14.6)
[2020-06-15] MEDS: AMLODIPINE 10MG TABLET PO SCH (09:00)
[2020-06-15] MEDS: METOPROLOL TARTRATE 100MG TABLET NG SCH ×2 (09:00→22:30)
[2020-06-15] MEDS: LEVETIRACETAM 500MG PREMIX 100 ML IV SCH ×2 (09:08→22:28)
[2020-06-15] MEDS: FOLIC ACID/VITAMIN B COMP W-C TABLET PO SCH (09:08)
[2020-06-15] MEDS: QUETIAPINE FUMARATE 25MG TABLET PO SCH ×2 (09:08→22:31)
[2020-06-15] MEDS: PANTOPRAZOLE SODIUM 40 MG/VIAL IV SCH ×2 (09:08→22:28)
[2020-06-15] MEDS: GUAIFENESIN 600MG ER TABLET PO SCH ×2 (09:08→22:31)
[2020-06-15 14:09] LABS: PLATELET ESTIMATE NORMAL
[2020-06-16] VITALS (12 sets, daily range): BP systolic 110–152; BP diastolic 58–99
[2020-06-16] MEDS: IPRATROPIUM/ALBUTEROL 0.5-3(2.5)MG/3ML NEB HHN SCH ×6 (00:15→20:31)
[2020-06-16] MEDS: HYDRALAZINE HCL 50MG TABLET PO SCH ×4 (01:00→18:00)
[2020-06-16] MEDS: GUAIFENESIN 600MG ER TABLET PO SCH ×2 (08:38→21:00)
[2020-06-16] MEDS: METOPROLOL TARTRATE 100MG TABLET NG SCH ×2 (08:38→21:00)
[2020-06-16] MEDS: FOLIC ACID/VITAMIN B COMP W-C TABLET PO SCH (08:38)
[2020-06-16] MEDS: PANTOPRAZOLE SODIUM 40 MG/VIAL IV SCH ×2 (08:38→21:22)
[2020-06-16] MEDS: LEVETIRACETAM 500MG PREMIX 100 ML IV SCH ×2 (08:39→21:22)
[2020-06-16] MEDS: QUETIAPINE FUMARATE 25MG TABLET PO SCH ×2 (08:39→21:00)
[2020-06-16] MEDS: AMLODIPINE 10MG TABLET PO SCH (08:39)
[2020-06-16] MEDS: LORAZEPAM 2MG/ML CPJ IV PRN (08:46)
[2020-06-17] VITALS (11 sets, daily range): BP systolic 110–156; BP diastolic 58–96
[2020-06-17] MEDS: IPRATROPIUM/ALBUTEROL 0.5-3(2.5)MG/3ML NEB HHN SCH ×6 (00:12→20:59)
[2020-06-17] MEDS: HYDRALAZINE HCL 50MG TABLET PO SCH ×4 (06:00→23:19)
[2020-06-17 07:48] LABS: HEMATOCRIT. 31.1 % (42.0-52.0); HEMOGLOBIN. 10.7 g/dL (14.0-18.0); MEAN CORPUSCULAR HEMOGLOBIN 31.1 pg (28.0-32.0); MEAN CORPUSCULAR VOLUME 90.6 fL (80.0-94.0); MEAN PLATELET VOLUME 9.8 fl (7.4-10.4); PLATELET 270 x1000/uL (130-400); RED BLOOD CELL COUNT 3.44 mill/uL (4.7-6.1); RED CELL DISTRIBUTION WIDTH 15.3 % (11.6-14.6)
[2020-06-17] MEDS: METOPROLOL TARTRATE 100MG TABLET NG SCH ×2 (08:46→20:25)
[2020-06-17] MEDS: AMLODIPINE 10MG TABLET PO SCH (08:46)
[2020-06-17] MEDS: GUAIFENESIN 600MG ER TABLET PO SCH (09:00)
[2020-06-17] MEDS: FOLIC ACID/VITAMIN B COMP W-C TABLET PO SCH (09:04)
[2020-06-17] MEDS: PANTOPRAZOLE SODIUM 40 MG/VIAL IV SCH ×2 (09:04→20:17)
[2020-06-17] MEDS: QUETIAPINE FUMARATE 25MG TABLET PO SCH ×2 (09:04→20:39)
[2020-06-17] MEDS: LEVETIRACETAM 500MG PREMIX 100 ML IV SCH ×2 (09:04→20:20)
[2020-06-17] MEDS: GUAIFENESIN 200MG/10ML SUGAR FREE UDC GT SCH ×3 (12:33→23:24)
[2020-06-17 15:37] LABS: PLATELET ESTIMATE NORMAL
[2020-06-17] MEDS: HALOPERIDOL LACTATE 5MG/ML VIAL IM PRN (23:24)
[2020-06-18] VITALS (12 sets, daily range): BP systolic 113–145; BP diastolic 76–101
[2020-06-18] MEDS: IPRATROPIUM/ALBUTEROL 0.5-3(2.5)MG/3ML NEB HHN SCH ×6 (00:19→20:01)
[2020-06-18] MEDS: GUAIFENESIN 200MG/10ML SUGAR FREE UDC GT SCH ×4 (04:45→20:50)
[2020-06-18] MEDS: HYDRALAZINE HCL 50MG TABLET PO SCH (04:57)
[2020-06-18] MEDS: HALOPERIDOL LACTATE 5MG/ML VIAL IM PRN (06:11)
[2020-06-18] MEDS: LORAZEPAM 2MG/ML CPJ IV PRN ×2 (10:59→22:45)
[2020-06-18] MEDS ORDERED: MORPHINE SULFATE 2 MG/ML CPJ (NOT FOR IM USE) IV PRN (11:00)
[2020-06-18] MEDS: PANTOPRAZOLE SODIUM 40 MG/VIAL IV SCH ×2 (12:32→20:50)
[2020-06-18] MEDS: METOPROLOL TARTRATE 100MG TABLET NG SCH ×2 (12:34→20:49)
[2020-06-18] MEDS: FOLIC ACID/VITAMIN B COMP W-C TABLET PO SCH (12:34)
[2020-06-18] MEDS: QUETIAPINE FUMARATE 25MG TABLET PO SCH ×2 (12:34→20:49)
[2020-06-18] MEDS: POLYETHYLENE GLYCOL 3350 (17GM) 1 DOSE PACK NG SCH (12:41)
[2020-06-18] MEDS: LEVETIRACETAM 500MG/5ML CUP PO SCH ×2 (12:41→20:53)
[2020-06-18] MEDS: AMLODIPINE 10MG TABLET PO SCH (12:47)
[2020-06-18] MEDS: HYDRALAZINE HCL 25MG TABLET PO SCH ×2 (14:00→20:49)
[2020-06-18] MEDS: DOCUSATE SODIUM SUGAR FREE 100MG/10ML UDC NG SCH (17:45)
[2020-06-18] MEDS ORDERED: SENNOSIDES/DOCUSATE SOD 8.6/50MG TABLET NG PRN (21:00)
[2020-06-19] VITALS (11 sets, daily range): BP systolic 124–154; BP diastolic 77–96
[2020-06-19] MEDS: IPRATROPIUM/ALBUTEROL 0.5-3(2.5)MG/3ML NEB HHN SCH ×5 (00:50→21:02)
[2020-06-19] MEDS: HYDRALAZINE HCL 25MG TABLET PO SCH ×3 (04:49→22:00)
[2020-06-19] MEDS: GUAIFENESIN 200MG/10ML SUGAR FREE UDC GT SCH ×4 (04:49→22:45)
[2020-06-19 07:03] LABS: MEAN CORPUSCULAR HEMOGLOBIN 29.5 pg (28.0-32.0); MEAN CORPUSCULAR VOLUME 88.1 fL (80.0-94.0); MEAN PLATELET VOLUME 9.4 fl (7.4-10.4); PLATELET 292 x1000/uL (130-400); RED BLOOD CELL COUNT 3.07 mill/uL (4.7-6.1); RED CELL DISTRIBUTION WIDTH 15.1 % (11.6-14.6)
[2020-06-19 07:30] LABS: PHOSPHORUS 3.7 mg/dL (2.5-4.9)
[2020-06-19] MEDS: METOPROLOL TARTRATE 100MG TABLET NG SCH ×2 (09:00→21:00)
[2020-06-19] MEDS: AMLODIPINE 10MG TABLET PO SCH (09:00)
[2020-06-19] MEDS: LEVETIRACETAM 500MG/5ML CUP PO SCH ×2 (09:13→22:00)
[2020-06-19] MEDS: PANTOPRAZOLE SODIUM 40 MG/VIAL IV SCH ×2 (09:13→21:58)
[2020-06-19] MEDS: DOCUSATE SODIUM SUGAR FREE 100MG/10ML UDC NG SCH ×2 (09:13→17:00)
[2020-06-19] MEDS: FOLIC ACID/VITAMIN B COMP W-C TABLET PO SCH (09:14)
[2020-06-19] MEDS: POLYETHYLENE GLYCOL 3350 (17GM) 1 DOSE PACK NG SCH (09:14)
[2020-06-19] MEDS: QUETIAPINE FUMARATE 25MG TABLET PO SCH ×2 (09:14→22:00)
[2020-06-19 16:28] LABS: PLATELET ESTIMATE NORMAL
[2020-06-19] MEDS ORDERED: EPOETIN ALFA-EPBX 4,000 UNIT/ML VIAL SUBCUT SCH (21:00)
[2020-06-19] MEDS ORDERED: EPOETIN ALFA 4000UNITS/ML VIAL SUBCUT SCH (21:00)
[2020-06-20] VITALS (10 sets, daily range): BP systolic 134–175; BP diastolic 80–96
[2020-06-20] MEDS: IPRATROPIUM/ALBUTEROL 0.5-3(2.5)MG/3ML NEB HHN SCH ×5 (00:57→16:00)
[2020-06-20] MEDS: PANTOPRAZOLE SODIUM 40 MG/VIAL IV SCH ×2 (01:45→09:42)
[2020-06-20] MEDS: LORAZEPAM 2MG/ML CPJ IV PRN ×3 (01:55→16:47)
[2020-06-20 06:13] LABS: HEMATOCRIT. 27.1 % (42.0-52.0); HEMOGLOBIN. 9.1 g/dL (14.0-18.0); MEAN CORPUSCULAR HEMOGLOBIN 29.7 pg (28.0-32.0); MEAN CORPUSCULAR VOLUME 88.6 fL (80.0-94.0); MEAN PLATELET VOLUME 9.2 fl (7.4-10.4); PLATELET 330 x1000/uL (130-400); RED BLOOD CELL COUNT 3.05 mill/uL (4.7-6.1); RED CELL DISTRIBUTION WIDTH 15.4 % (11.6-14.6)
[2020-06-20] MEDS: GUAIFENESIN 200MG/10ML SUGAR FREE UDC GT SCH ×2 (06:29→12:03)
[2020-06-20] MEDS: HYDRALAZINE HCL 25MG TABLET PO SCH ×2 (06:29→15:20)
[2020-06-20] MEDS: DOCUSATE SODIUM SUGAR FREE 100MG/10ML UDC NG SCH (09:41)
[2020-06-20] MEDS: POLYETHYLENE GLYCOL 3350 (17GM) 1 DOSE PACK NG SCH (09:41)
[2020-06-20] MEDS: LEVETIRACETAM 500MG/5ML CUP PO SCH (09:41)
[2020-06-20] MEDS: AMLODIPINE 10MG TABLET PO SCH (09:42)
[2020-06-20] MEDS: FOLIC ACID/VITAMIN B COMP W-C TABLET PO SCH (09:42)
[2020-06-20] MEDS: QUETIAPINE FUMARATE 25MG TABLET PO SCH (09:43)
[2020-06-20] MEDS: METOPROLOL TARTRATE 100MG TABLET NG SCH (09:43)
[2020-06-20] MEDS: CLONIDINE HCL 0.2MG/24HR PATCH TD SCH (09:44)
[2020-06-20 14:04] LABS: PLATELET ESTIMATE NORMAL
[2020-06-20] MEDS: CLONIDINE 0.1MG TABLET NG PRN (16:52)
== END 2020-06-20 18:05 | DRG 3 ==
LOC: ER 19:11 → MICUNO 19:12 → EDBEDREQSVC 19:32 → EDBEDREQ 19:32 → EDBEDREQTM 19:32 → ENRESERV 21:23 → CANBEDREQ 05-26 16:07 → MICUSO 05-30 19:00 → 5EST 06-12 03:56
PROVIDERS: ADMIT Internal Medicine; ATTEND Internal Medicine
PROC: 5A1D70Z Performance of Urinary Filtration, Intermittent, Less than 6 Hours Per Day (ICD-10-PCS; 2020-05-31)
PROC: 02HV33Z Insertion of Infusion Device into Superior Vena Cava, Percutaneous Approach (ICD-10-PCS; 2020-05-31)
PROC: B548ZZA Ultrasonography of Superior Vena Cava, Guidance (ICD-10-PCS; 2020-05-31)
PROC: 5A1D70Z Performance of Urinary Filtration, Intermittent, Less than 6 Hours Per Day (ICD-10-PCS; 2020-06-02)
PROC: 5A1955Z Respiratory Ventilation, Greater than 96 Consecutive Hours (ICD-10-PCS; principal; 2020-06-03)
PROC: 0BH18EZ Insertion of Endotracheal Airway into Trachea, Via Natural or Artificial Opening Endoscopic (ICD-10-PCS; 2020-06-03)
PROC: 5A1D70Z Performance of Urinary Filtration, Intermittent, Less than 6 Hours Per Day (ICD-10-PCS; 2020-06-04)
PROC: 5A1D70Z Performance of Urinary Filtration, Intermittent, Less than 6 Hours Per Day (ICD-10-PCS; 2020-06-06)
PROC: 5A1D70Z Performance of Urinary Filtration, Intermittent, Less than 6 Hours Per Day (ICD-10-PCS; 2020-06-07)
PROC: 0B110F4 Bypass Trachea to Cutaneous with Tracheostomy Device, Open Approach (ICD-10-PCS; 2020-06-10)
PROC: 0DJ08ZZ Inspection of Upper Intestinal Tract, Via Natural or Artificial Opening Endoscopic (ICD-10-PCS; 2020-06-13)
PROC: 30233N1 Transfusion of Nonautologous Red Blood Cells into Peripheral Vein, Percutaneous Approach (ICD-10-PCS; 2020-06-13)
PROC: 0GBJ0ZZ Excision of Thyroid Gland Isthmus, Open Approach (ICD-10-PCS; 2020-06-20)
DX: I61.3 Nontraumatic intracerebral hemorrhage in brain stem (principal); J96.00 Acute respiratory failure, unspecified whether with hypoxia or hypercapnia; J69.0 Pneumonitis due to inhalation of food and vomit; N18.6 End stage renal disease; Q61.3 Polycystic kidney, unspecified; G93.40 Encephalopathy, unspecified; I12.0 Hypertensive chronic kidney disease with stage 5 chronic kidney disease or end stage renal disease; J98.11 Atelectasis; N25.81 Secondary hyperparathyroidism of renal origin; Q44.6 Cystic disease of liver; Q61.2 Polycystic kidney, adult type; R18.8 Other ascites; I10 Essential (primary) hypertension; E87.6 Hypokalemia; D64.9 Anemia, unspecified; E78.00 Pure hypercholesterolemia, unspecified; E78.5 Hyperlipidemia, unspecified; E83.39 Other disorders of phosphorus metabolism; E88.09 Other disorders of plasma-protein metabolism, not elsewhere classified; K44.9 Diaphragmatic hernia without obstruction or gangrene; K76.89 Other specified diseases of liver; Z20.828 Contact with and (suspected) exposure to other viral communicable diseases; M10.9 Gout, unspecified; Z82.49 Family history of ischemic heart disease and other diseases of the circulatory system; Z86.73 Personal history of transient ischemic attack (TIA), and cerebral infarction without residual deficits; Z99.2 Dependence on renal dialysis; Z79.899 Other long term (current) drug therapy
CPT/HCPCS: 36415; 36600; 71045; 74018; 74176; 76700; 76937; 80048; 80053; 80076; 80305; 80320; 81003; 82040; 82140; 82375; 82805; 82962; 83721; 83735; 84100; 84134; 84484; 85014; 85018; 85025; 85027; 86850; 86900; 86920; 87426; 93005; 94002; 94003; 94640; 99291; A6261; C1725; C9113; J0690; J0885; J1100; J1630; J1953; J2060; J2250; J2270; J3010; J3430; J3480; J3490; J7040; J7042; J7050; J7060; J7608; P9016; G0480